=== PATIENT | female | born 1945 | race Caucasian/White ===

== ENCOUNTER 2017-06-20 10:02 | Day surgery (SDC) | payer OTHER, MEDICARE, SELFPAY ==
[2017-06-07 13:32] VITALS: BMI 23.3
[2017-06-20 10:39] VITALS: BP 139/73; PULSE 58; RESP 18; TEMP 36.7; O2SAT 99
[2017-06-20 11:04] LABS: Basophils % 0.5 % (0.1-2.0); Eosinophils # 0.3 K/mm3 (0.0-0.4); Eosinophils % 5.2 % (0.1-12.0); Hematocrit 41.2 % (37.0-47.0); Hemoglobin 13.5 g/dL (12.2-16.2); Lymphocytes # 1.3 K/mm3 (0.7-4.5); Lymphocytes % 25.7 K/mm3 (10-50); Mean Corpuscular HGB Conc 32.8 g/dL (31.8-35.4); Mean Corpuscular Volume 91.5 fl (81-99); Mean Platelet Volume 7.5 fl (7.4-10.4); Monocytes # 0.3 K/mm3 (0.1-1.0); Monocytes % 5.4 % (1.7-9.3); Neutrophils # 3.2 K/mm3 (1.8-7.8); Neutrophils % 63.2 % (37.0-80.0); Platelet Count 240 K/mm3 (142-424)
[2017-06-20 11:12] LABS: Anion Gap 9.2 mEq/L (5-15); Blood Urea Nitrogen 15 mg/dL (7-18); Carbon Dioxide 31 mmol/L (21.0-32.0); Chloride 104 mmol/L (98-107); Creatinine Clearance Estimated 50 mL/min (0-300); Creatinine,Serum 0.63 mg/dL (0.55-1.02); Estimated Glomerular Filt Rate 93 ml/min (>60); GFR (African American) 112 ML/MIN (>60); Glucose 93 mg/dL (74-106); Potassium 4.2 mmoL/L (3.5-5.1); Sodium 140 mmol/L (136-145)
--- NOTE | 2017-06-20 11:18 | P.PN_ITS ---
[facility] Anesthesia Checklist - Patient Identification Patient Identification: Arm Band, Verbal (Name & ) - Structural Data Admitted From: Home Planned Operative Procedure/s: kyphoplasty Consent for Planned Operative Procedure(s) Verified: Yes Verified Documents: Surgical Consent - NPO Status Verified Time NPO: 00:00 - Chart Verification Results Verified: None - Additional verifications Patient : No Anesthesia Reactions: No Hx Blood Transfusions: No Blood Transfusion Reaction: No Cephalosporin Allergy: No Previous Colonoscopy: No - Cardiovascular Assessment Heart Sounds: S1 & S2 Pulse Strength: Strong Pulse Rhythm: Regular Peripheral Edema: No - Airway Assessment C-Spine Mobility Assessed: Yes TMJ Mobility Assessed: Yes Dentition: Good Dentition - Neurological Assessment Level of Consciousness: Awake, Alert, Appropriate Hx Seizures: No Numbness or tingling in extremities: No - Anesthesia Plan Anesthesia Risk discussed: Yes Anesthesia Plan: Verified ASA Class: I Anesthesia Type: MAC [facility] Anesthesia HX I have reviewed the patient's past medical history: Yes Medical History: Reports:: Hyperlipidemia, Migraine, Osteoporosis Denies:: Cancer, Diabetes Mellitus Type 1, Diabetes Mellitus Type 2, MRSA, Seizures Other Medical History: Denies: Blood Transfusion Reaction Comment: tummy tuck Amputation: No Fractures: No *Family Hx:: Cancer, Coronary Artery Disease, Heart Attack, Hyperlipidemia, Hypertension, Thyroid Disorder
[2017-06-20 14:20] VITALS: BP 121/59; PULSE 74; RESP 16; TEMP 36.2; O2SAT 98
[2017-06-20 14:35] VITALS: BP 124/63; PULSE 64; RESP 18; O2SAT 97
[2017-06-20 14:50] VITALS: BP 122/62; PULSE 66; RESP 18; O2SAT 96
[2017-06-20 15:05] VITALS: BP 130/66; PULSE 62; RESP 18; O2SAT 95
[2017-06-20 15:45] VITALS: BP 130/66; PULSE 62; RESP 18; O2SAT 95
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
== END 2017-06-20 15:45 | disposition home or self-care (01) ==
LOC: OR 10:06
PROVIDERS: Family Provider Internal Medicine Adolescent Medicine; PCP Internal Medicine Adolescent Medicine; Visit Provider Anesthesiology
PROC: (CPT 22513; principal; 2017-06-20 11:30)
DX: S22.080A Wedge compression fracture of T11-T12 vertebra, initial encounter for closed fracture (principal); M85.88 Other specified disorders of bone density and structure, other site; V89.2XXA Person injured in unspecified motor-vehicle accident, traffic, initial encounter
CPT/HCPCS: 22513; 80048; 85025; 96374

== ENCOUNTER → 2017-07-02 11:05 | Outpatient (POV) | payer OTHER, MEDICARE, SELFPAY ==
[2017-07-02 11:23] VITALS: BP 146/57; PULSE 63; O2SAT 100; BMI 23.3
--- NOTE | 2017-07-02 11:53 | P.CONS_ITS ---
[facility] Pain Management SOAP Note Subjective:: This patient is a pleasant 72-year-old white female who is status post kyphoplasty of the T12 compression fracture. She is 2 weeks status post this procedure and is doing very well with resolution of her mid back pain. She still has some low back pain however, she still has some degenerative changes with bulging disc and arthritis in her low back. She has more discomfort with overactivity than pain. This does not interfere with her daily activities. Overall she is doing well. Objective:: Alert and oriented ?3 in no acute distress. Some tenderness over lower lumbar spine. Motor strength of the lower extremities is 5/5. There is no gross sensory deficit. Assessment:: Status post T12 compression fracture with kyphoplasty procedure. Degenerative disc disease of lumbar spine with lumbar radiculopathy symptoms. Plan:: We will follow-up with her in 3 months. Overall she is doing well. I did talk to her about lumbar epidural steroid injections and since only has some slight discomfort with activity she would like to hold off on injections at this time.
== END ==
PROVIDERS: Family Provider Internal Medicine Adolescent Medicine; PCP Internal Medicine Adolescent Medicine; Visit Provider Anesthesiology
DX: M54.16 Radiculopathy, lumbar region (principal)
CPT/HCPCS: 99212

== ENCOUNTER → 2017-09-17 09:02 | Outpatient (POV) | payer MEDICARE, SELFPAY ==
[2017-09-17 09:24] VITALS: BP 133/80; PULSE 78; RESP 18; O2SAT 96; BMI 23.4
--- NOTE | 2017-09-17 09:49 | HMH.PAINSOAP ---
[facility] Pain Management SOAP Note Subjective:: Patient is a very pleasant 72-year-old white female who presents today for 3 month follow-up after kyphoplasty of T12 compression fracture. She states she is doing very well at this time she has no back pain. Patient does state she has some pain when she does sewing however it is very manageable. Patient is currently under treatment for osteoporosis. Overall she is doing well ROS General: no recent weight change, no fever, no sleep disturbances Respiratory: no cough, no shortness of air, no recurring pulmonary infections Cardiovascular/Peripheral Vascular: No chest pain, No palpitations, no edema, no shortness of breath. Patient did have one episode and is being worked up by her primary care physician to rule out cardiac pathology. Gastrointestinal: no new onset incontinence, normal bowel movements reported Genitourinary: no new onset incontinence Musculoskeletal: Back pain Psychiatric: normal mood/ affect, Neurological: [denies weakness in extremities], [denies balance issues] Objective:: Physical Exam General: Alert and oriented x3, no acute distress, pleasant and cooperative, [on room air] Lungs: Resps E/U, Symmetrical chest expansion, Eyes: PERRL Musculoskeletal: Flexion and extension of thoracic and lumbar spine somewhat guarded secondary to pain, deep tendon reflexes normal, strength in upper and lower extremities [5/5], normal gait noted Neurological: speech clear, room service clerk equal, no gross sensory deficits Assessment:: Status post T12 compression fracture with kyphoplasty procedure. Degenerative disc disease of the lumbar spine with lumbar radiculopathy Plan:: This patient is doing extremely well we will just follow up with her on an as-needed basis. I discussed with her her options of injections if she has future pain. I also encouraged her to continue her treatment for osteoporosis. This note was dictated using voice recognition software and may contain errors or omissions
--- NOTE | 2017-09-17 09:52 | P.CONS_ITS ---
[facility] Pain Management SOAP Note Subjective:: Patient is a very pleasant 72-year-old white female who presents today for 3 month follow-up after kyphoplasty of T12 compression fracture. She states she is doing very well at this time she has no back pain. Patient does state she has some pain when she does sewing however it is very manageable. Patient is currently under treatment for osteoporosis. Overall she is doing well ROS General: no recent weight change, no fever, no sleep disturbances Respiratory: no cough, no shortness of air, no recurring pulmonary infections Cardiovascular/Peripheral Vascular: No chest pain, No palpitations, no edema, no shortness of breath. Patient did have one episode and is being worked up by her primary care physician to rule out cardiac pathology. Gastrointestinal: no new onset incontinence, normal bowel movements reported Genitourinary: no new onset incontinence Musculoskeletal: Back pain Psychiatric: normal mood/ affect, Neurological: [denies weakness in extremities], [denies balance issues] Objective:: Physical Exam General: Alert and oriented x3, no acute distress, pleasant and cooperative, [ on room air] Lungs: Resps E/U, Symmetrical chest expansion, Eyes: PERRL Musculoskeletal: Flexion and extension of thoracic and lumbar spine somewhat guarded secondary to pain, deep tendon reflexes normal, strength in upper and lower extremities [5/5], normal gait noted Neurological: speech clear, processing inspector equal, no gross sensory deficits Assessment:: Status post T12 compression fracture with kyphoplasty procedure. Degenerative disc disease of the lumbar spine with lumbar radiculopathy Plan:: This patient is doing extremely well we will just follow up with her on an as- needed basis. I discussed with her her options of injections if she has future pain. I also encouraged her to continue her treatment for osteoporosis. This note was dictated using voice recognition software and may contain errors or omissions
== END ==
PROVIDERS: Family Provider Internal Medicine Adolescent Medicine; PCP Internal Medicine Adolescent Medicine; Visit Provider Clinical Nurse Specialist Family Health
DX: M54.16 Radiculopathy, lumbar region (principal)
CPT/HCPCS: 99212

== ENCOUNTER 2017-09-20 15:14 | Observation (INO) ==
--- NOTE | 2017-09-20 16:28 | Consult Report ---
History of Present Illness Consult date: 09/20/17 Requesting physician: John Lopez Consult reason: chest pain Chief complaint: Chest pain Additional Medical History:: 1. No known coronary artery disease. 2. Significant family history of Coronary Heart disease, Hyperlipidemia, Hypertension. a. Father ([place]) unknown age b. Mother (CAD, HTN) 3. Mixed Hyperlipidemia 4. Second-hand tobacco exposure 5. Abnormal ECG History of present illness: 72-year-old white female presented to cardiology clinic today chest pain. Patient stated she started having chest pain 1 week ago accompanied with shortness of breath. Patient had been evaluated by Dr. Lopez 1 week ago. EKG was performed which revealed abnormal EKG with possible inferior ischemia. Patient stated that she has had a few more episodes of the chest pain since seen her family doctor. EKG was performed in the office today which revealed normal sinus rhythm, Septal infarct marked with T wave abnormality and consider inferior ischemia with a heart rate of 69 bpm. Patient has no known coronary artery disease. There is significant family history of coronary artery disease , hyperlipidemia and hypertension. Patient is a non-smoker but exposed to secondhand tobacco use. Due to patient's unstable angina and abnormal EKG, left heart catheterization will possibly be performed tomorrow. Initial chest x-ray and base line labs are pending at time of this exam. [facility] History Medical History: Reports:: Hyperlipidemia, Migraine, Osteoporosis Denies:: Cancer, Diabetes Mellitus Type 1, Diabetes Mellitus Type 2, MRSA, Seizures Other Medical History: Reports: Osteoporosis. Denies: Blood Transfusion Reaction Other Surgeries: Yes: Other (Stomach Sx) Amputation: No Fractures: No - *Social History Smoking Status: Never smoker Alcohol Intake: never Alcohol Intake Frequency:: other Occupational Status: retired Housing: house Household Members: friend(s) *Family Hx:: Cancer, Coronary Artery Disease, Heart Attack, Hyperlipidemia, Hypertension, Thyroid Disorder Meds Home Medications Medication Instructions Recorded Confirmed Type Aspirin [Aspir 81] 81 mg PO DAILY 06/07/17 06/20/17 History Rizatriptan Benzoate [Rizatriptan] 10 mg PO [id number] PRN 06/07/17 06/20/17 History Alendronate Sodium 70 mg PO DAILY 06/20/17 06/20/17 History Allergies Allergy/AdvReac Type Severity Reaction Status Date / Time No Known Drug Allergies Allergy Unknown Verified 06/20/17 10:29 Review of Systems - Review of Systems Review of systems:: pertinent systems reviewed and negative unless documented below - Constitutional Reports fatigue, Reports lack of energy - *Cardiovascular Reports chest pain, Reports chest pain at rest, Reports chest pain with activity , Reports shortness of breath, Reports shortness of breath with activity, Denies leg pain with activity, Denies excessive sweating, Denies generalized swelling - *Respiratory Reports shortness of breath, Reports shortness of breath with activity, Denies cough, Denies wheezing - *Gastrointestinal Denies abdominal pain, Denies heartburn - *Neurologic Reports weakness, Denies dizziness, Denies dizziness Exam - Constitutional no acute distress, average body habitus, cooperative - *Routine Neck Exam Present: supple, full ROM, normal carotid upstroke, trachea midline. Absent: JVD, carotid bruit - *Routine Respiratory Exam Present: CTA bilaterally. Absent: respiratory distress, wheezes, crackles - *Routine Cardiovascular Exam Present: RRR, Normal S1, Normal S2. Absent: murmur, gallop, rubs, JVD - *Routine Abdominal Exam Present: soft. Absent: distended, guarding - *Routine Extremities Exam Present: full ROM, pulses intact, normal capillary refill. Absent: cyanosis, clubbing, edema - *Routine Neurological Exam Present: alert, oriented X3, CN II-XII intact, moving all extremities, normal speech Assessment and Plan (1) Hyperlipemia Current visit: Yes Status: Chronic Category: Medical Code(s): E78.5 - Hyperlipidemia, unspecified (2) Family history of coronary artery disease Current visit: Yes Status: Chronic Category: Medical Code(s): Z82.49 - Family history of ischemic heart disease and other diseases of the circulatory system (3) Angina of effort Current visit: Yes Status: Acute Category: Medical Code(s): I20.8 - Other forms of angina pectoris - Assessment and plan all Dx Assessment and Plan for all problems:: Plan: 1. Continue medical management per PCP. 2. Add Plavix 300mg po now x 1 dose then, Plavix 75mg 1 tablet po daily. 3. Aspirin 81 mg 1 tablet po daily. 4. Start Heparin drip per facility protocol. 5. Lopressor 12.5mg 1 tablet po BID. 6. Obtain Chest xray for chest abnormalities. 7. Obtain echocardiogram for LV function and valve status. 8. Obtain CBC, BMP, serial cardiac enzymes for metabolic imbalances and cardiac muscle damage. 9. Plan for Left Heart catetherization in am. Discussed with pt the risk and benefits of heart catetherization. Pt agreeable. 10. NPO after midnight due to heart catetherization in am.
--- NOTE | 2017-09-20 16:37 | History & Physical Report ---
*Admission Date: 09/20/17 *Chief complaint: Left-sided aching chest discomfort *History of present illness: 72-year-old female with no known history of coronary artery disease was seen in the cardiology clinic today after having multiple episodes over the last 2 weeks of an aching chest discomfort that occurs usually with activity and has certainly been more noticeable when walking up steps. Patient typically will walk 3 miles a day but admits she has been walking significantly less due to the aching chest. When she has the aching chest discomfort she denies shortness of breath, nausea, radiation of disc comfort into the neck or jaw or back or left arm. She takes a baby aspirin a day. There is a family history of coronary artery disease and her mother had "angina". Cardiology service admitted her to the ICU as there were no regular beds available [facility] History I have reviewed the patient's past medical history: Yes Medical History: Reports:: Hyperlipidemia, Migraine, Osteoporosis Denies:: Cancer, Diabetes Mellitus Type 1, Diabetes Mellitus Type 2, MRSA, Seizures Other Medical History: Reports: Osteoporosis. Denies: Blood Transfusion Reaction Other Surgeries: Yes: Other (Stomach Sx) Amputation: No Fractures: No - *Social History Smoking Status: Never smoker Alcohol Intake: never Alcohol Intake Frequency:: other Occupational Status: retired Housing: house Household Members: friend(s) *Family Hx:: Cancer, Coronary Artery Disease, Heart Attack, Hyperlipidemia, Hypertension, Thyroid Disorder Review of Systems - Review of Systems Review of systems:: pertinent systems reviewed and negative unless documented below Meds Home Medications Medication Instructions Recorded Confirmed Type Aspirin [Aspir 81] 81 mg PO DAILY 06/07/17 06/20/17 History Rizatriptan Benzoate [Rizatriptan] 10 mg PO [id number] PRN 06/07/17 06/20/17 History Alendronate Sodium 70 mg PO DAILY 06/20/17 06/20/17 History Allergies Allergy/AdvReac Type Severity Reaction Status Date / Time No Known Drug Allergies Allergy Unknown Verified 06/20/17 10:29 Exam I & O for Last 24 hours: Intake & Output 09/18/17 09/19/17 09/20/17 09/21/17 11:59 11:59 11:59 11:59 Weight 141 lb Narrative: She is awake and alert in no distress. HEENT exam is grossly normal. Neck without lymphadenopathy. Lungs are clear to auscultation. Heart had a regular rate and rhythm without murmurs gallops or rubs. Abdomen is soft, nontender, nondistended. Patient has active range of motion in all extremities with no significant pedal edema. Neurologically there is no deficit Assessment and Plan (1) Angina of effort Current visit: Yes Status: Acute Category: Medical Code(s): I20.8 - Other forms of angina pectoris - Assessment and plan all Dx Assessment and Plan for all problems:: She has been admitted for cardiac catheterization in the a.m.
[2017-09-20 17:26] LABS: INR 1.03 (0.9-1.1); Prothrombin Time 11.1 seconds (9.4-11.8)
[2017-09-20 17:32] LABS: Albumin Level 3.6 gm/dL (3.4-5.0); Anion Gap 10.9 mEq/L (5-15); Bilirubin,Total 0.2 mg/dL (0.2-1.0); Calcium 9.4 mg/dL (8.5-10.1); Globulin 3.5 gm/dl (1.3-3.2); Potassium 3.9 mmoL/L (3.5-5.1); Total Protein,Serum 7.1 gm/dL (6.4-8.2)
[2017-09-21 05:56] LABS: Basophils % 0.3 % (0.1-2.0); Eosinophils # 0.1 K/mm3 (0.0-0.4); Eosinophils % 2.3 % (0.1-12.0); Hematocrit 38.9 % (37.0-47.0); Hemoglobin 12.9 g/dL (12.2-16.2); Lymphocytes # 1.3 K/mm3 (0.7-4.5); Mean Corpuscular HGB Conc 33.1 g/dL (31.8-35.4); Mean Corpuscular Hemoglobin 31.3 pg (27.0-31.2); Mean Corpuscular Volume 94.6 fl (81-99); Monocytes # 0.4 K/mm3 (0.1-1.0); Monocytes % 9.2 % (1.7-9.3); Neutrophils # 2.8 K/mm3 (1.8-7.8); Neutrophils % 61.2 % (37.0-80.0); Platelet Count 204 K/mm3 (142-424); Red Blood Count 4.11 M/mm3 (4.20-5.40); White Blood Count 4.6 K/mm3 (4.8-10.8)
[2017-09-21 06:11] LABS: Albumin Level 2.9 gm/dL (3.4-5.0); Albumin/Globulin Ratio 0.9 (1.1-1.8); Bilirubin,Total 0.2 mg/dL (0.2-1.0); Calcium 8.9 mg/dL (8.5-10.1); Globulin 3.1 gm/dl (1.3-3.2)
--- NOTE | 2017-09-21 07:46 | Pharmacy Consult Notes ---
[facility] Pharmacy VTE Monitoring - Patient Demographics Admission date: 09/20/17 Report Date: 09/21/17 Time: 07:45 Allergies/Adverse Reactions: Patient Allergies No Known Drug Allergies Allergy (Unknown, Verified 06/20/17 10:29) Height: 1.65 m Weight: 63.673 kg Patient Problems: Current Active Problems Angina of effort (Acute) Hyperlipemia (Chronic) Family history of coronary artery disease (Chronic) - VTE Risk Labs: VTE Related Lab Results Hgb 12.9 g/dL (12.2-16.2) 09/21/17 05:30 Hct 38.9 % (37.0-47.0) 09/21/17 05:30 Plt Count 204 K/mm3 (142-424) 09/21/17 05:30 PT 11.1 seconds (9.4-11.8) 09/20/17 17:05 INR 1.03 (0.9-1.1) 09/20/17 17:05 APTT 39.3 seconds (23.6-34.0) H D 09/21/17 02:13 BUN 17 mg/dL (7-18) 09/21/17 05:30 Creatinine 0.72 mg/dL (0.55-1.02) 09/21/17 05:30 Estimated Creat Clear 50 mL/min (0-300) 09/21/17 05:30 Was VTE Risk Assessment Performed: Yes VTE Score: 1 VTE Risk Level: Very Low Risk - Prophylaxis VTE Prophylaxis Ordered?: Yes Types of VTE Prophylaxis: TEDS Knee High, Pharmacological Location of Applied Device: Bilateral Lower Extremeties Pharmacologic Type: Heparin - VTE Diagnosis Confirmed Treatment or plan recommended: Continue Current Treatment
--- NOTE | 2017-09-21 08:01 | Progress Note ---
Internal Medicine - PN: Subj *Date: 09/21/17 *Time: 08:00 Interval history: Patient has had no pain through the night, but has been resting quietly. Exam Vital signs and Labs for Last 24 Hours: Temp Pulse Resp BP Pulse Ox 98.3 F 60 16 97/54 94 L 09/21/17 05:51 09/21/17 05:51 09/21/17 05:51 09/21/17 05:51 09/21/17 05:51 Laboratory Results - last 24 hr 09/20/17 17:05: Sodium 141, Potassium 3.9, Chloride 103, Carbon Dioxide 31, Anion Gap 10.9, BUN 22 H, Creatinine 0.87, Estimated Creat Clear 51, Estimated GFR 64, Est GFR ( Amer) 77, Glucose 129 H, Calcium 9.4, Total Bilirubin 0.2, AST 32, ALT 26, Alkaline Phosphatase 54, Total Protein 7.1, Albumin 3.6, Globulin 3.5 H, Albumin/Globulin Ratio 1.0 L 09/20/17 17:05: Troponin I 0.16 H 09/20/17 17:05: PT 11.1, INR 1.03 09/20/17 17:05: APTT 24.5 09/21/17 02:13: APTT 39.3 H D 09/21/17 05:30: WBC 4.6 L, RBC 4.11 L, Hgb 12.9, Hct 38.9, MCV 94.6, MCH 31.3 H , MCHC 33.1, RDW 13.0, Plt Count 204, MPV 8.0, Neut % (Auto) 61.2, Lymph % (Auto ) 27.0, [place] % (Auto) 9.2, Eos % (Auto) 2.3, Baso % (Auto) 0.3, Neut # (Auto) 2.8, Lymph # (Auto) 1.3, [place] # (Auto) 0.4, Eos # (Auto) 0.1, Baso # (Auto) 0.0 09/21/17 05:30: Sodium 143, Potassium 4.0, Chloride 107, Carbon Dioxide 29, Anion Gap 11.0, BUN 17, Creatinine 0.72, Estimated Creat Clear 50, Estimated GFR 79, Est GFR ( Amer) 96 D, Glucose 103 D, Calcium 8.9, Total Bilirubin 0.2, AST 25, ALT 20, Alkaline Phosphatase 48, Total Protein 6.0 L, Albumin 2.9 L D, Globulin 3.1, Albumin/Globulin Ratio 0.9 L I & O for Last 24 hours: Intake & Output 09/18/17 09/19/17 09/20/17 09/21/17 11:59 11:59 11:59 11:59 Intake Total 706 / 706 Output Total 1500 / 1500 Balance -794 / -794 Weight 140 lb 6 oz Narrative: Patient pleasant, alert, oriented 3, heart rate regular, no edema noted. Assessment and Plan (1) Hyperlipemia Current visit: Yes Status: Chronic Category: Medical Code(s): E78.5 - Hyperlipidemia, unspecified (2) Family history of coronary artery disease Current visit: Yes Status: Chronic Category: Medical Code(s): Z82.49 - Family history of ischemic heart disease and other diseases of the circulatory system (3) Angina of effort Current visit: Yes Status: Acute Category: Medical Code(s): I20.8 - Other forms of angina pectoris - Assessment and plan all Dx Assessment and Plan for all problems:: Agree with plans for left heart cath today.
--- NOTE | 2017-09-21 10:07 | Pharmacy Consult Notes ---
[facility] Pharmacy Heparin Dosing - Demographic Data Admission date:: 09/20/17 Date: 09/21/17 Time: 10:05 Allergies/Adverse Reactions: Allergies Allergy/AdvReac Type Severity Reaction Status Date / Time No Known Drug Allergies Allergy Unknown Verified 06/20/17 10:29 Height: 1.65 m Weight: 63 kg - Indication Medication therapy:: Heparin Patient Problems: Current Active Problems Angina of effort (Acute) Hyperlipemia (Chronic) Family history of coronary artery disease (Chronic) CVA?: No Bleeding problem?: No Kidney disease?: No [place]?: Yes Desired PTT range:: 60-80 seconds - Labs Anticoagulation Lab Results:: 09/21/17 05:30 Hgb 12.9 Hct 38.9 Plt Count 204 - Monitoring Dose Monitor 1 Date: 09/20/17 Time: 17:00 PTT Result:: 24.5 Infusion Rate:: 15 ML/HR (750 UNITS/HR) Comment:: 4000 UNIT BOLUS Dose Monitor 2 Date: 09/21/17 Time: 02:13 PTT Result:: 39.3 Infusion Rate:: 17 ML/HR (850 UNITS/HR) Comment:: REBOLUS 4000 UNITS PTT <<45 Dose Monitor 3 Date: 09/21/17 Time: 08:00 PTT Result:: 129.1 Infusion Rate:: HEPARIN STOPPED IN KITCHEN MANAGER. - Core Measures Is INR > or = 2 at discharge?: No Most Recent Labs:: Laboratory Results - last 24 hr 09/20/17 17:05: Sodium 141, Potassium 3.9, Chloride 103, Carbon Dioxide 31, Anion Gap 10.9, BUN 22 H, Creatinine 0.87, Estimated Creat Clear 51, Estimated GFR 64, Est GFR ( Amer) 77, Glucose 129 H, Calcium 9.4, Total Bilirubin 0.2, AST 32, ALT 26, Alkaline Phosphatase 54, Total Protein 7.1, Albumin 3.6, Globulin 3.5 H, Albumin/Globulin Ratio 1.0 L 09/20/17 17:05: Troponin I 0.16 H 09/20/17 17:05: PT 11.1, INR 1.03 09/20/17 17:05: APTT 24.5 09/21/17 02:13: APTT 39.3 H D 09/21/17 05:30: WBC 4.6 L, RBC 4.11 L, Hgb 12.9, Hct 38.9, MCV 94.6, MCH 31.3 H , MCHC 33.1, RDW 13.0, Plt Count 204, MPV 8.0, Neut % (Auto) 61.2, Lymph % (Auto ) 27.0, [place] % (Auto) 9.2, Eos % (Auto) 2.3, Baso % (Auto) 0.3, Neut # (Auto) 2.8, Lymph # (Auto) 1.3, [place] # (Auto) 0.4, Eos # (Auto) 0.1, Baso # (Auto) 0.0 09/21/17 05:30: Sodium 143, Potassium 4.0, Chloride 107, Carbon Dioxide 29, Anion Gap 11.0, BUN 17, Creatinine 0.72, Estimated Creat Clear 50, Estimated GFR 79, Est GFR ( Amer) 96 D, Glucose 103 D, Calcium 8.9, Total Bilirubin 0.2, AST 25, ALT 20, Alkaline Phosphatase 48, Total Protein 6.0 L, Albumin 2.9 L D, Globulin 3.1, Albumin/Globulin Ratio 0.9 L 09/21/17 08:00: APTT 129.1 H* D If INR was < than 2.0 why was therapy stopped?: NOT DVT Were Heparin and Warfarin started on the same day?: No If not, why?: NO DVT
--- NOTE | 2017-09-21 14:15 | Discharge Summary ---
General - General Admission date: 09/20/17 Discharge date: 09/21/17 HPI HPI: 72-year-old female with no known history of coronary artery disease was seen in the cardiology clinic today after having multiple episodes over the last 2 weeks of an aching chest discomfort that occurs usually with activity and has certainly been more noticeable when walking up steps. Patient typically will walk 3 miles a day but admits she has been walking significantly less due to the aching chest. When she has the aching chest discomfort she denies shortness of breath, nausea, radiation of disc comfort into the neck or jaw or back or left arm. She takes a baby aspirin a day. There is a family history of coronary artery disease and her mother had "angina". Cardiology service admitted her to the ICU as there were no regular beds available Hospital Course Hospital Course: Patient was admitted, ruled out for myocardial infarction, EKG abnormalities noted, cardiology admitted and took to left heart cath this morning. Surprisingly, patient had no blockages and essentially normal cardiac function. She was doing well after the catheterization. We will discharge her home on medications as noted below, close follow-up in 1 week to try to assess where her pain is coming from. Objective Vital signs: Temp Pulse Resp BP Pulse Ox 98.2 F 62 16 92/47 97 09/21/17 08:00 09/21/17 13:25 09/21/17 13:25 09/21/17 13:25 09/21/17 13:25 - *Routine HEENT Exam Head: Present: normocephalic - *Routine Neck Exam Present: supple. Absent: JVD - *Routine Respiratory Exam Present: CTA bilaterally - *Routine Cardiovascular Exam Present: RRR, Normal S1, Normal S2 - *Routine Abdominal Exam Present: soft, normoactive bowel sounds Results Labs on day of discharge: Labs from last 24 hours 09/21/17 09/21/17 09/21/17 08:00 05:30 05:30 WBC 4.6 L RBC 4.11 L Hgb 12.9 Hct 38.9 MCV 94.6 MCH 31.3 H MCHC 33.1 RDW 13.0 Plt Count 204 MPV 8.0 Neut % (Auto) 61.2 Lymph % (Auto) 27.0 Emery % (Auto) 9.2 Eos % (Auto) 2.3 Baso % (Auto) 0.3 Neut # (Auto) 2.8 Lymph # (Auto) 1.3 Emery # (Auto) 0.4 Eos # (Auto) 0.1 Baso # (Auto) 0.0 PT INR APTT 129.1 H* D Sodium 143 Potassium 4.0 Chloride 107 Carbon Dioxide 29 Anion Gap 11.0 BUN 17 Creatinine 0.72 Estimated Creat Clear 50 Estimated GFR 79 Est GFR ( Amer) 96 D Glucose 103 D Calcium 8.9 Total Bilirubin 0.2 AST 25 ALT 20 Alkaline Phosphatase 48 Troponin I Total Protein 6.0 L Albumin 2.9 L D Globulin 3.1 Albumin/Globulin Ratio 0.9 L 09/21/17 09/20/17 09/20/17 02:13 17:05 17:05 WBC RBC Hgb Hct MCV MCH MCHC RDW Plt Count MPV Neut % (Auto) Lymph % (Auto) Emery % (Auto) Eos % (Auto) Baso % (Auto) Neut # (Auto) Lymph # (Auto) Emery # (Auto) Eos # (Auto) Baso # (Auto) PT 11.1 INR 1.03 APTT 39.3 H D 24.5 Sodium Potassium Chloride Carbon Dioxide Anion Gap BUN Creatinine Estimated Creat Clear Estimated GFR Est GFR ( Amer) Glucose Calcium Total Bilirubin AST ALT Alkaline Phosphatase Troponin I Total Protein Albumin Globulin Albumin/Globulin Ratio 09/20/17 09/20/17 17:05 17:05 WBC RBC Hgb Hct MCV MCH MCHC RDW Plt Count MPV Neut % (Auto) Lymph % (Auto) Emery % (Auto) Eos % (Auto) Baso % (Auto) Neut # (Auto) Lymph # (Auto) Emery # (Auto) Eos # (Auto) Baso # (Auto) PT INR APTT Sodium 141 Potassium 3.9 Chloride 103 Carbon Dioxide 31 Anion Gap 10.9 BUN 22 H Creatinine 0.87 Estimated Creat Clear 51 Estimated GFR 64 Est GFR ( Amer) 77 Glucose 129 H Calcium 9.4 Total Bilirubin 0.2 AST 32 ALT 26 Alkaline Phosphatase 54 Troponin I 0.16 H Total Protein 7.1 Albumin 3.6 Globulin 3.5 H Albumin/Globulin Ratio 1.0 L DS: Diagnosis - Discharge Diagnosis (1) Hyperlipemia Status: Chronic (2) Family history of coronary artery disease Status: Chronic (3) Angina of effort Status: Acute Discharge Plan - Patient Discharge Instructions ACTIVITY: Continue current activity DIET: continue same diet - Follow up Plan Follow up with: John Lopez MD [Primary Care Provider] - 1 week Disposition: Home, Self-Senior Care Medications: Home Medications Medication Instructions Recorded Confirmed Type Aspirin [Aspir 81] 81 mg PO DAILY 06/07/17 09/20/17 History Rizatriptan Benzoate [Rizatriptan] 10 mg PO [id number] PRN 06/07/17 09/20/17 History Alendronate Sodium 70 mg PO WEEKLY 06/20/17 09/20/17 History Nitroglycerin [Nitrostat 0.4mg SL 0.4 mg SL Q5MINP PRN 09/21/17 09/21/17 History Tablet] Prescriptions/Medication Reconciliation: New Omeprazole [Omeprazole 20mg Capsule] 20 mg PO DAILY 30 Days #30 cap Continue Rizatriptan Benzoate [Rizatriptan] 10 mg PO [id number] PRN PRN Reason: migraines Nitroglycerin [Nitrostat 0.4mg SL Tablet] 0.4 mg SL Q5MINP PRN PRN Reason: Chest Pain Aspirin [Aspir 81] 81 mg PO DAILY Alendronate Sodium 70 mg PO WEEKLY
[2017-09-21 17:49] VITALS: BP 95/50
--- NOTE | 2017-09-24 21:01 | Cardiology Report ---
PROCEDURE: 2-D M-mode and color Doppler study INDICATIONS FOR THE TEST: Chest pain X COPD Heart Murmur Tobacco Smoking Palpitations Fatigue Syncope Edema Hypertension Diabetes Mellitus Rheumatic Fever SOB YOUNG Obesity HyperlipidemiaX Family History HDX Additional History ABN EKG PATIENT INFORMATION HEIGHT: 65 WEIGHT:140 GENDER: Female B/P:97/54 2-D/M-MODE INTERPRETATION: 2-D MEASUREMENTS OBSERVED VALUES IN CMS Right Ventricular Dimension (RVDd) 2.0 Interventricular Septum (Thickness)(IVsd) 1.0 Left Ventricular Internal Dimensions(LVIDd) 4.4 Left Ventricular Posterior Wall (Thickness)(LVPWd) 1.0 Aortic Root 3.9 Aortic Cusp Separation 2.2 Left Atrial Dimensions (LAD) 2.5 2D 1. Left atrium is qualitatively mildly enlarged, left ventricle is normal size, visually estimated ejection fraction of 50% with no obvious regional wall motion abnormality, endocardial surfaces are somewhat poorly visualized. 2. The right atrium is mildly enlarged, right ventricle is normal size and contractility. 3. The aortic valve is minimally thickened and fibrosed. 4. The mitral and tricuspid valve leaflets are minimally thickened. 5. The pulmonic valve is poorly visualized. 6. No significant pericardial effusion noted. DOPPLER INTERROGATION: Doppler interrogation of the aortic, mitral and tricuspid valvular presence of mild mitral and tricuspid regurgitation, calculated right ventricular systolic pressure 38 mmHg consistent with mild pulmonary hypertension, grade 1 diastolic dysfunction seen with tissue Doppler evidence of raised left atrial pressure. CONCLUSION: 1. Mild biatrial enlargement, normal left ventricular size, visually estimated ejection fraction 50% with no obvious regional wall motion abnormality, grade 1 diastolic dysfunction seen with tissue Doppler evidence of raised left atrial pressure. 2. Mild mitral and tricuspid regurgitation, calculated right ventricular systolic pressure is 38 mmHg consistent with mild pulmonary hypertension. 3. No significant pericardial effusion noted.
== END 2017-09-21 15:15 | disposition home or self-care (01) ==
LOC: 2ND
PROVIDERS: ADMIT Internal Medicine Adolescent Medicine; ATTEND Internal Medicine Adolescent Medicine

== ENCOUNTER → 2018-04-19 11:07 | Outpatient (CLI) | payer MEDICARE, SELFPAY ==
[2018-04-19 12:26] LABS: Basophils % 0.5 % (0.1-2.0); Hematocrit 41.8 % (37.0-47.0); Hemoglobin 13.6 g/dL (12.2-16.2); Lymphocytes # 1.3 K/mm3 (0.7-4.5); Lymphocytes % 30.9 % (10-50); Mean Corpuscular HGB Conc 32.6 g/dL (31.8-35.4); Mean Corpuscular Hemoglobin 31.3 pg (27.0-31.2); Mean Corpuscular Volume 96.1 fl (81-99); Mean Platelet Volume 7.2 fl (7.4-10.4); Monocytes # 0.4 K/mm3 (0.1-1.0); Monocytes % 8.5 % (1.7-9.3); Neutrophils # 2.5 K/mm3 (1.8-7.8); Neutrophils % 59.1 % (37.0-80.0); Platelet Count 229 K/mm3 (142-424); Red Blood Count 4.35 M/mm3 (4.20-5.40); Red Cell Distribution Width 12.8 % (11.5-17.5); White Blood Count 4.3 K/mm3 (4.8-10.8)
[2018-04-19 12:54] LABS: Alanine Aminotransferase 26 U/L (12-78); Albumin Level 3.6 gm/dL (3.4-5.0); Albumin/Globulin Ratio 1.2 (1.1-1.8); Alkaline Phosphatase 51 U/L (46-116); Anion Gap 10.6 mEq/L (5-15); Aspartate Amino Transferase 21 U/L (15-37); Bilirubin,Total 0.3 mg/dL (0.2-1.0); Blood Urea Nitrogen 21 mg/dL (7-18); Calcium 9.4 mg/dL (8.5-10.1); Carbon Dioxide 32 mmol/L (21.0-32.0); Chloride 101 mmol/L (98-107); Chol/HDL Ratio 2.2 (1-3.5); Cholesterol 214 mg/dL (140-200); Creatinine,Serum 0.69 mg/dL (0.55-1.02); Estimated Glomerular Filt Rate 83 ml/min (>60); GFR (African American) 101 ML/MIN (>60); Globulin 3.1 gm/dl (1.3-3.2); Glucose 86 mg/dL (74-106); HDL Cholesterol 97 mg/dL (29-89); LDL Cholesterol 106 mg/dL (0-130); Potassium 4.6 mmoL/L (3.5-5.1); Sodium 139 mmol/L (136-145); Total Protein,Serum 6.7 gm/dL (6.4-8.2); Triglycerides 55 mg/dL (30-200); VLDL Cholesterol 11 mg/dL (0-40)
[2018-04-22 11:16] LABS: Vitamin D 25 Hydroxy 49.6 ng/mL (30.0-100.0)
== END ==
PROVIDERS: PCP Internal Medicine Adolescent Medicine; Visit Provider Internal Medicine Adolescent Medicine
DX: E78.5 Hyperlipidemia, unspecified (principal); M81.0 Age-related osteoporosis without current pathological fracture
CPT/HCPCS: 36415; 80053; 80061; 82652; 85025

== ENCOUNTER → 2018-04-23 16:10 | Outpatient (CLI) | payer MEDICARE, SELFPAY ==
--- NOTE | 2018-04-23 16:12 | MM_ITS ---
MM Dig screening mamm BI w/CAD CAD Screening COMPARISON: Digital mammograms with CAD 12/24/2015 and 01/02/2017 INDICATION: Is a history of breast cancer patient's mother and maternal aunt both diagnosed after menopause. TECHNIQUE: Standard CC and MLO images were obtained. R2 CAD reviewed. FINDINGS: Mild diffuse fibroglandular densities are seen throughout both breasts. Again noted is asymmetric density upper outer quadrant left breast. This is been seen on multiple previous studies but appears slightly more dense and slightly larger on today's study than previous studies. It likely is asymmetric glandular tissue but recommend patient return for ultrasound left breast for additional evaluation. There are few benign-appearing calcination is in each breast. There are no suspicious microcalcifications. There is minimal arterial calcification in each breast. IMPRESSION: Fibrofatty parenchyma with possible change in asymmetric density left breast BI-RADS Category: 0 Need Additional Imaging Evaluation RECOMMENDED FOLLOW-UP: IMM - IMMEDIATE FOLLOW-UP RECOMMENDED (A letter has been sent to the patient regarding results of the study.)
== END ==
PROVIDERS: PCP Internal Medicine Adolescent Medicine; Visit Provider Internal Medicine Adolescent Medicine
DX: Z12.31 Encounter for screening mammogram for malignant neoplasm of breast (principal)
CPT/HCPCS: 77067

== ENCOUNTER → 2018-05-10 13:53 | Outpatient (CLI) | payer MEDICARE, SELFPAY ==
--- NOTE | 2018-05-10 13:56 | US_ITS ---
US breast LT complete INDICATION: Follow-up abnormal mammogram ORDERING PHYSICIAN: John Lopez MD PATIENT AGE: 73 years COMPARISON: 04/23/2018 TECHNIQUE: Left breast ultrasound with axilla FINDINGS: 5 mm cyst at 6:00 Abnormality noted on the mammogram has no sonographic correlate and felt to be related to fibroglandular tissue. IMPRESSION: No evidence of malignancy. Probably benign findings on the mammogram. Recommend 6 month mammographic follow-up BI-RADS Category: 3 Probably Benign Finding Short Term Follow-up RECOMMENDED FOLLOW-UP: 6M - 6 MONTH FOLLOW-UP (A letter has been sent to the patient regarding results of the study.)
== END ==
PROVIDERS: PCP Internal Medicine Adolescent Medicine; Visit Provider Internal Medicine Adolescent Medicine
DX: R92.8 Other abnormal and inconclusive findings on diagnostic imaging of breast (principal)
CPT/HCPCS: 76641

== ENCOUNTER → 2018-10-04 11:09 | Outpatient (CLI) | payer MEDICARE, SELFPAY ==
[2018-10-04 11:53] LABS: Basophils % 0.7 % (0.1-2.0); Eosinophils % 0.5 % (0.1-12.0); Hematocrit 41.9 % (37.0-47.0); Hemoglobin 14.2 g/dL (12.2-16.2); Lymphocytes # 1.2 K/mm3 (0.7-4.5); Lymphocytes % 26.8 % (10-50); Mean Corpuscular HGB Conc 33.9 g/dL (31.8-35.4); Mean Corpuscular Hemoglobin 31.7 pg (27.0-31.2); Mean Corpuscular Volume 93.4 fl (81-99); Mean Platelet Volume 7.2 fl (7.4-10.4); Monocytes # 0.3 K/mm3 (0.1-1.0); Neutrophils # 3.1 K/mm3 (1.8-7.8); Platelet Count 317 K/mm3 (142-424); Red Blood Count 4.48 M/mm3 (4.20-5.40); Red Cell Distribution Width 12.2 % (11.5-17.5); White Blood Count 4.6 K/mm3 (4.8-10.8)
[2018-10-04 13:15] LABS: Alanine Aminotransferase 33 U/L (12-78); Albumin Level 4.2 gm/dL (3.4-5.0); Albumin/Globulin Ratio 1.2 (1.1-1.8); Alkaline Phosphatase 46 U/L (46-116); Anion Gap 11.3 mEq/L (5-15); Aspartate Amino Transferase 26 U/L (15-37); Bilirubin,Total 0.3 mg/dL (0.2-1.0); Blood Urea Nitrogen 14 mg/dL (7-18); Calcium 9.7 mg/dL (8.5-10.1); Carbon Dioxide 29 mmol/L (21.0-32.0); Chloride 103 mmol/L (98-107); Chol/HDL Ratio 2.9 (1-3.5); Cholesterol 249 mg/dL (140-200); Creatinine,Serum 0.73 mg/dL (0.55-1.02); Estimated Glomerular Filt Rate 78 ml/min (>60); GFR (African American) 94 ML/MIN (>60); Globulin 3.6 gm/dl (1.3-3.2); Glucose 90 mg/dL (74-106); HDL Cholesterol 87 mg/dL (29-89); LDL Cholesterol 152 mg/dL (0-130); Potassium 4.3 mmoL/L (3.5-5.1); Sodium 139 mmol/L (136-145); Thyroid Stimulating Hormone 3.08 uIU/ml (0.358-3.740); Total Protein,Serum 7.8 gm/dL (6.4-8.2); Triglycerides 52 mg/dL (30-200); VLDL Cholesterol 10 mg/dL (0-40)
[2018-10-05 20:45] LABS: Vitamin D 25 Hydroxy 47.1 ng/mL (30.0-100.0)
== END ==
PROVIDERS: Visit Provider Internal Medicine Adolescent Medicine
DX: E78.5 Hyperlipidemia, unspecified (principal); M81.0 Age-related osteoporosis without current pathological fracture
CPT/HCPCS: 36415; 80053; 80061; 82652; 84443; 85025

== ENCOUNTER → 2018-10-24 13:33 | Outpatient (CLI) | payer MEDICARE, SELFPAY ==
--- NOTE | 2018-10-24 | US_ITS ---
MM Dig mamm DX unilat LT CAD, US breast LT complete INDICATION: Month follow-up left breast, asymmetric density ORDERING PHYSICIAN: John Lopez MD PATIENT AGE: 73 years COMPARISON: 04/23/2018, 01/02/2017 TECHNIQUE: Standard images performed along with problem-solving views of the left breast. Left breast ultrasound with axilla FINDINGS: Average fibroglandular tissue. There remains an area of asymmetric density in the upper outer aspect of the left breast posterior third similar to the previous exam. This partially effaces on the spot compression an rolled views.. There is a 4 mm a nodule in the retroareolar region. No malignant appearing mass or malignant appearing microcalcification is evident. Left breast ultrasound: At 6:00 near the nipple there is a 4 mm cyst and may correspond to the mammographic abnormality. No other significant anomalies are evident. Specifically, the asymmetric area of increased density in the upper outer aspect of left breast does not show any sonographic correlate. IMPRESSION: Benign findings, no evidence of malignancy. Recommend resume screening mammogram April 2019 BI-RADS Category: 2 Benign Finding(s) RECOMMENDED FOLLOW-UP: 6M - 6 MONTH FOLLOW-UP (A letter has been sent to the patient regarding results of the study.)
--- NOTE | 2018-10-24 13:37 | XR_ITS ---
XR DEXA axial skeleton HISTORY: ITS.REASON: OSTEOPENIA ORDERING PHYSICIAN: John Lopez MD PATIENT AGE: 73 years COMPARISON: 01/02/2017 FINDINGS: The BMD measured at the Left femoral neck is 0.750 g/cm squared with a T score of -2.1. This is considered Osteopenic according to the World Health Organization criteria. Fracture risk is Moderate. Treatment is advised. The L1 L4 density in the T score -1.3 and has increased by 2.7%. The hip density has decreased by 1.5% IMPRESSION: Osteopenia with moderate fracture risk. Treatment is advised. Suggest follow-up exam October 2020
== END ==
PROVIDERS: PCP Internal Medicine Adolescent Medicine; Visit Provider Internal Medicine Adolescent Medicine
DX: R92.8 Other abnormal and inconclusive findings on diagnostic imaging of breast (principal); M81.0 Age-related osteoporosis without current pathological fracture
CPT/HCPCS: 76641; 77065; 77080

== ENCOUNTER → 2019-05-14 10:01 | Outpatient (CLI) | payer MEDICARE, SELFPAY ==
--- NOTE | 2019-05-14 10:17 | MM_ITS ---
PROCEDURE: MM DIG SCREENING MAMM BI W/CAD Patient Age:74Y CLINICAL INDICATION: SCREENING: No hormones. No new complaints. 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 R2 CAD reviewed. Additional nipple profile left MLO view FINDINGS: . Stable mild asymmetry with overall low-density breast and moderate diffuse fatty replacement but no new areas of concern. No suspicious calcifications but a few benign calcifications bilateral can be followed Left breast no significant new findings the The the the the island of tissue upper outer quadrant left breast is again noted similar to multiple previous studies. Including film screen studies dating back to April 2009 on which this area appears stable on CC view. No significant change. . Right breast no significant change The follow-up 1 year bilateral IMPRESSION: Stable bilateral mammogram. Bilateral follow-up 1 year recommended stable area of asymmetric density at deep upper-outer quadrant left breast again noted. Longstanding. Otherwise low-density breast with diffuse fatty change BI-RAD Category: 2 Benign Finding(s) FOLLOW-UP: 1YR 1 Year Follow-up (A letter has been sent to the patient regarding results of the study.) Dictated by: Aries Deleon MD 05/15/2019 10:37 Electronically signed by Aries Deleon MD in [place] 05/15/2019 10:37
[2019-05-14 10:41] LABS: Basophils % 0.4 % (0.1-2.0); Eosinophils # 0.1 K/mm3 (0.0-0.4); Eosinophils % 1.8 % (0.1-12.0); Hematocrit 43.6 % (37.0-47.0); Lymphocytes # 1.1 K/mm3 (0.7-4.5); Lymphocytes % 22.7 % (10-50); Mean Corpuscular HGB Conc 32.1 g/dL (31.8-35.4); Mean Corpuscular Hemoglobin 31.1 pg (27.0-31.2); Mean Corpuscular Volume 96.9 fl (81-99); Mean Platelet Volume 8.2 fl (7.4-10.4); Monocytes # 0.3 K/mm3 (0.1-1.0); Monocytes % 6.3 % (1.7-9.3); Neutrophils # 3.4 K/mm3 (1.8-7.8); Neutrophils % 68.9 % (37.0-80.0); Platelet Count 283 K/mm3 (142-424); Red Cell Distribution Width 12.3 % (11.5-17.5); White Blood Count 4.9 K/mm3 (4.8-10.8)
[2019-05-14 12:27] LABS: Alanine Aminotransferase 24 U/L (12-78); Albumin Level 3.8 gm/dL (3.4-5.0); Albumin/Globulin Ratio 1.2 (1.1-1.8); Alkaline Phosphatase 66 U/L (46-116); Anion Gap 10.7 mEq/L (5-15); Aspartate Amino Transferase 19 U/L (15-37); Bilirubin,Total 0.2 mg/dL (0.2-1.0); Blood Urea Nitrogen 14 mg/dL (7-18); Calcium 9.1 mg/dL (8.5-10.1); Carbon Dioxide 31 mmol/L (21.0-32.0); Chloride 104 mmol/L (98-107); Chol/HDL Ratio 2.5 (1-3.5); Cholesterol 246 mg/dL (140-200); Creatinine,Serum 0.75 mg/dL (0.55-1.02); Estimated Glomerular Filt Rate 75 ml/min (>60); GFR (African American) 91 ML/MIN (>60); Globulin 3.2 gm/dl (1.3-3.2); Glucose 91 mg/dL (74-106); HDL Cholesterol 98 mg/dL (29-89); LDL Cholesterol 141 mg/dL (0-130); Potassium 4.7 mmoL/L (3.5-5.1); Sodium 141 mmol/L (136-145); Triglycerides 34 mg/dL (30-200); VLDL Cholesterol 7 mg/dL (0-40)
== END ==
PROVIDERS: PCP Internal Medicine Adolescent Medicine; Visit Provider Internal Medicine Adolescent Medicine
DX: Z12.31 Encounter for screening mammogram for malignant neoplasm of breast (principal); M81.0 Age-related osteoporosis without current pathological fracture; E78.5 Hyperlipidemia, unspecified
CPT/HCPCS: 36415; 77067; 80053; 80061; 82652; 85025

== ENCOUNTER → 2019-07-25 08:31 | Outpatient (CLI) | payer MEDICARE, SELFPAY ==
[2019-07-25 09:36] LABS: Basophils % 0.5 % (0.1-2.0); Eosinophils # 0.1 K/mm3 (0.0-0.4); Eosinophils % 2.8 % (0.1-12.0); Hematocrit 39.7 % (37.0-47.0); Lymphocytes # 1.1 K/mm3 (0.7-4.5); Lymphocytes % 24.3 % (10-50); Mean Corpuscular HGB Conc 32.8 g/dL (31.8-35.4); Mean Corpuscular Hemoglobin 31.7 pg (27.0-31.2); Mean Corpuscular Volume 96.7 fl (81-99); Monocytes # 0.3 K/mm3 (0.1-1.0); Monocytes % 7.6 % (1.7-9.3); Neutrophils # 2.9 K/mm3 (1.8-7.8); Neutrophils % 64.9 % (37.0-80.0); Platelet Count 238 K/mm3 (142-424); Red Cell Distribution Width 12.4 % (11.5-17.5); White Blood Count 4.5 K/mm3 (4.8-10.8)
[2019-07-25 11:20] LABS: Alanine Aminotransferase 15 U/L (12-78); Albumin Level 4.3 g/dl (3.5-5.0); Albumin/Globulin Ratio 1.7 (1.1-1.8); Alkaline Phosphatase 48 U/L (38-126); Anion Gap 8.7 mEq/L (5-15); Aspartate Amino Transferase 33 U/L (14-36); Bilirubin,Total 0.2 mg/dl (0.2-1.3); Blood Urea Nitrogen 19 mg/dl (7-17); Calcium 10.2 mg/dl (8.4-10.2); Carbon Dioxide 32 mmol/L (22.0-30.0); Chloride 99 mmol/L (98-107); Chol/HDL Ratio 1.7 (1-3.5); Cholesterol 149 mg/dl (140-200); Estimated Glomerular Filt Rate 61 ml/min (>60); GFR (African American) 74 ML/MIN (>60); Globulin 2.6 g/dL (1.3-3.2); Glucose 85 mg/dl (74-100); HDL Cholesterol 87 mg/dl (40-60); Potassium 4.7 mmoL/L (3.5-5.1); Sodium 135 mmol/L (136-145); Total Protein,Serum 6.9 g/dl (6.3-8.2); Triglycerides 48 mg/dl (30-150); VLDL Cholesterol 10 mg/dL (0-40)
[2019-07-25 11:31] LABS: Direct LDL Cholesterol 53.26 mg/dL (100-129)
== END ==
PROVIDERS: Visit Provider Internal Medicine Adolescent Medicine
DX: E78.5 Hyperlipidemia, unspecified (principal); M81.0 Age-related osteoporosis without current pathological fracture
CPT/HCPCS: 36415; 80053; 80061; 82652; 85025

== ENCOUNTER → 2020-01-09 09:58 | Outpatient (CLI) | payer MEDICARE, SELFPAY ==
[2020-01-09 10:36] LABS: Basophils % 0.7 % (0.1-2.0); Eosinophils # 0.1 K/mm3 (0.0-0.4); Hematocrit 39.5 % (37.0-47.0); Hemoglobin 13.6 g/dL (12.2-16.2); Lymphocytes # 1.1 K/mm3 (0.7-4.5); Lymphocytes % 24.8 % (10-50); Mean Corpuscular HGB Conc 34.4 g/dL (31.8-35.4); Mean Corpuscular Hemoglobin 33.1 pg (27.0-31.2); Mean Corpuscular Volume 96.2 fl (81-99); Mean Platelet Volume 7.9 fl (7.4-10.4); Monocytes # 0.3 K/mm3 (0.1-1.0); Neutrophils % 64.5 % (37.0-80.0); Platelet Count 244 K/mm3 (142-424); Red Cell Distribution Width 12.8 % (11.5-17.5); White Blood Count 4.6 K/mm3 (4.8-10.8)
[2020-01-09 11:43] LABS: Chloride 102 mmol/L (98-107); Potassium 4.7 mmoL/L (3.5-5.1); Sodium 140 mmol/L (136-145)
[2020-01-09 11:45] LABS: Blood Urea Nitrogen 18 mg/dl (7-17); Estimated Glomerular Filt Rate 61 ml/min (>60); GFR (African American) 74 ML/MIN (>60)
[2020-01-09 11:46] LABS: Alanine Aminotransferase 23 U/L (12-78); Albumin Level 4.4 g/dl (3.5-5.0); Albumin/Globulin Ratio 1.8 (1.1-1.8); Alkaline Phosphatase 66 U/L (38-126); Anion Gap 10.7 mEq/L (5-15); Aspartate Amino Transferase 39 U/L (14-36); Bilirubin,Total 0.4 mg/dl (0.2-1.3); Calcium 9.9 mg/dl (8.4-10.2); Carbon Dioxide 32 mmol/L (22.0-30.0); Chol/HDL Ratio 1.4 (1-3.5); Cholesterol 134 mg/dl (140-200); Globulin 2.5 g/dL (1.3-3.2); Glucose 87 mg/dl (74-100); HDL Cholesterol 99 mg/dl (40-60); Total Protein,Serum 6.9 g/dl (6.3-8.2); Triglycerides 35 mg/dl (30-150); VLDL Cholesterol 7 mg/dL (0-40)
[2020-01-09 11:57] LABS: Direct LDL Cholesterol 34.03 mg/dL (100-129)
[2020-01-09 14:25] LABS: 25-OH Vitamin D, Total 53.9 ng/mL (30-100)
== END ==
PROVIDERS: Visit Provider Internal Medicine Adolescent Medicine
DX: E78.5 Hyperlipidemia, unspecified (principal); M81.0 Age-related osteoporosis without current pathological fracture
CPT/HCPCS: 36415; 80053; 80061; 82306; 85025

== ENCOUNTER → 2020-01-30 13:21 | Outpatient (CLI) | payer MEDICARE, SELFPAY ==
[2020-02-01 17:05] LABS: Covid-19 Nasal PCR Sendout UK Not Detected
== END ==
PROVIDERS: Visit Provider Internal Medicine Adolescent Medicine
DX: Z03.818 Encounter for observation for suspected exposure to other biological agents ruled out (principal)
CPT/HCPCS: U0003

== ENCOUNTER → 2020-05-05 11:27 | Outpatient (CLI) | payer MEDICARE, SELFPAY ==
[2020-05-05 12:09] LABS: Basophils % 0.6 % (0.1-2.0); Eosinophils # 0.1 K/mm3 (0.0-0.4); Eosinophils % 1.3 % (0.1-12.0); Hematocrit 42.6 % (37.0-47.0); Hemoglobin 14.3 g/dL (12.2-16.2); Lymphocytes # 1.1 K/mm3 (0.7-4.5); Lymphocytes % 25.4 % (10-50); Mean Corpuscular HGB Conc 33.4 g/dL (31.8-35.4); Mean Corpuscular Hemoglobin 31.4 pg (27.0-31.2); Mean Corpuscular Volume 93.9 fl (81-99); Mean Platelet Volume 8.1 fl (7.4-10.4); Monocytes # 0.3 K/mm3 (0.1-1.0); Monocytes % 6.1 % (1.7-9.3); Neutrophils % 66.6 % (37.0-80.0); Platelet Count 246 K/mm3 (142-424); Red Blood Count 4.54 M/mm3 (4.20-5.40); Red Cell Distribution Width 12.6 % (11.5-17.5); White Blood Count 4.5 K/mm3 (4.8-10.8)
[2020-05-05 13:16] LABS: Chloride 101 mmol/L (98-107); Potassium 4.9 mmoL/L (3.5-5.1); Sodium 137 mmol/L (136-145)
[2020-05-05 13:18] LABS: Alanine Aminotransferase 30 U/L (12-78); Aspartate Amino Transferase 45 U/L (14-36); Blood Urea Nitrogen 17 mg/dl (7-17); Estimated Glomerular Filt Rate 70 ml/min (>60); GFR (African American) 84 ML/MIN (>60)
[2020-05-05 13:19] LABS: Albumin Level 4.4 g/dl (3.5-5.0); Albumin/Globulin Ratio 1.7 (1.1-1.8); Alkaline Phosphatase 84 U/L (38-126); Anion Gap 8.9 mEq/L (5-15); Bilirubin,Total 0.6 mg/dl (0.2-1.3); Calcium 10.1 mg/dl (8.4-10.2); Carbon Dioxide 32 mmol/L (22.0-30.0); Chol/HDL Ratio 1.9 (1-3.5); Cholesterol 155 mg/dl (140-200); Globulin 2.6 g/dL (1.3-3.2); Glucose 92 mg/dl (74-100); HDL Cholesterol 81 mg/dl (40-60); Triglycerides 94 mg/dl (30-150); VLDL Cholesterol 19 mg/dL (0-40)
[2020-05-05 13:30] LABS: Direct LDL Cholesterol 48.24 mg/dL (100-129)
[2020-05-05 16:36] LABS: 25-OH Vitamin D, Total 54.3 ng/mL (30-100)
== END ==
PROVIDERS: Visit Provider Internal Medicine Adolescent Medicine
DX: E78.5 Hyperlipidemia, unspecified (principal); M81.0 Age-related osteoporosis without current pathological fracture
CPT/HCPCS: 36415; 80053; 80061; 82306; 85025

== ENCOUNTER → 2020-05-11 15:53 | Outpatient (CLI) | payer MEDICARE, SELFPAY ==
--- NOTE | 2020-05-11 15:57 | MM_ITS ---
PROCEDURE: MM DIG SCREENING MAMM BI W/CAD Referring Doctor: John Lopez Patient Age:75Y CLINICAL INDICATION: SCREENING 75-year-old. No hormones. No new complaints. Family history. Mother with breast cancer in her 60s. Also maternal aunt COMPARISON: MG [facility] DIGITAL MAMM-SCREEN BILATERAL from 04/11/2011 MG [facility] DIGITAL MAMM-SCREEN BILATERAL from 04/15/2012 MG [facility] DIG MAMM-SCREEN PRESLEY from 04/18/2013 MG [facility] DIG MAMM-SCREEN PRESLEY from 12/17/2014 MG [facility] DIG MAMM-SCREEN PRESLEY from 12/24/2015 MG [facility] DIG MAMM-SCREEN PRESLEY W/CAD from 01/02/2017 MG [facility] MM Dig screening mamm BI w/CAD from 04/23/2018 US BREASTLT US breast LT complete from 05/10/2018 US BREASTLT US breast LT complete from 10/24/2018 MG DIG MAMM-DX UNI-LT from 10/24/2018 MG MM DIG SCREENING MAMM BI W/CAD from 05/14/2019 TECHNIQUE: Standard CC and MLO images were obtained. R2 CAD reviewed. Bilateral digital breast tomosynthesis included. Additional axillary CC view right breast included FINDINGS: Overall lower density breast. Breast with for the most part most part fatty replacement Left breast-longstanding stable asymmetric density at the upper-outer quadrant of the left breast. This is most likely a stable focal area of denser fibroglandular tissue. Which appears similar on MLO views since 2017. And was seen on prior studies as well. It does appear to dissipate on the CC tomosynthesis view today. I would also note has been a thorough workup of this area the performed october 2018 include additional spot views which showed it to dissipate for the most part. Is also a ultrasound from both May 2018 and October 2018 which show no suspicious findings. The Right breast-no new areas of concern. Stable architecture.. Scattered benign solitary calcifications. IMPRESSION: Stable bilateral mammogram the with no new areas of significant concern Left breast.-stable with no new areas of concern The asymmetric island of density at the upper-outer quadrant left breast-stable since at least 2017. This area thoroughly evaluated in 2017 including ultrasound survey with no appreciable change on today's mammogram Ongoing annual mammography follow-up would be important and should be emphasized. (And if any palpable area should developed or progress in the interval here at the upper-outer quadrant left breast, repeat interval imaging would be warranted) BI-RAD Category: 2 Benign Finding(s) FOLLOW-UP: 1YR 1 Year Follow-up (A letter has been sent to the patient regarding results of the study.) Dictated by: Aries Deleon MD 05/14/2020 11:13 Aries Deleon MD in [place] 05/14/2020 11:13
== END ==
PROVIDERS: PCP Internal Medicine Adolescent Medicine; Visit Provider Internal Medicine Adolescent Medicine
DX: Z12.31 Encounter for screening mammogram for malignant neoplasm of breast (principal)
CPT/HCPCS: 77063; 77067

== ENCOUNTER → 2021-01-19 12:16 | Outpatient (CLI) | payer MEDICARE, SELFPAY ==
[2021-01-19 14:46] LABS: Alanine Aminotransferase 24 U/L (12-78); Albumin Level 4.4 g/dl (3.5-5.0); Albumin/Globulin Ratio 1.7 (1.1-1.8); Alkaline Phosphatase 69 U/L (38-126); Anion Gap 10.8 mEq/L (5-15); Aspartate Amino Transferase 46 U/L (14-36); Bilirubin,Total 0.8 mg/dl (0.2-1.3); Blood Urea Nitrogen 16 mg/dl (7-17); Calcium 9.4 mg/dl (8.4-10.2); Carbon Dioxide 33 mmol/L (22.0-30.0); Chloride 97 mmol/L (98-107); Chol/HDL Ratio 1.9 (1-3.5); Cholesterol 149 mg/dl (140-200); Estimated Glomerular Filt Rate 70 ml/min (>60); GFR (African American) 84 ML/MIN (>60); Globulin 2.6 g/dL (1.3-3.2); Glucose 88 mg/dl (74-100); HDL Cholesterol 80 mg/dl (40-60); Potassium 4.8 mmoL/L (3.5-5.1); Sodium 136 mmol/L (136-145); Triglycerides 80 mg/dl (30-150); VLDL Cholesterol 16 mg/dL (0-40)
[2021-01-19 14:51] LABS: Basophils % 0.6 % (0.1-2.0); Eosinophils # 0.1 K/mm3 (0.0-0.4); Eosinophils % 1.8 % (0.1-12.0); Hematocrit 39.7 % (37.0-47.0); Hemoglobin 13.6 g/dL (12.2-16.2); Lymphocytes # 1.3 K/mm3 (0.7-4.5); Lymphocytes % 25.7 % (10-50); Mean Corpuscular HGB Conc 34.2 g/dL (31.8-35.4); Mean Corpuscular Hemoglobin 31.3 pg (27.0-31.2); Mean Corpuscular Volume 91.6 fl (81-99); Monocytes # 0.4 K/mm3 (0.1-1.0); Monocytes % 7.5 % (1.7-9.3); Neutrophils # 3.4 K/mm3 (1.8-7.8); Neutrophils % 64.5 % (37.0-80.0); Platelet Count 243 K/mm3 (142-424); Red Blood Count 4.33 M/mm3 (4.20-5.40); White Blood Count 5.2 K/mm3 (4.8-10.8)
[2021-01-19 14:57] LABS: Direct LDL Cholesterol 48.93 mg/dL (100-129)
[2021-01-19 15:06] LABS: 25-OH Vitamin D, Total 55.1 ng/mL (30-100)
[2021-01-19 15:18] LABS: Thyroid Stimulating Hormone 2.13 uIU/mL (0.465-4.68)
== END ==
PROVIDERS: Visit Provider Internal Medicine Adolescent Medicine
DX: E78.5 Hyperlipidemia, unspecified (principal); M81.0 Age-related osteoporosis without current pathological fracture
CPT/HCPCS: 36415; 80053; 80061; 82306; 84443; 85025

== ENCOUNTER → 2021-05-11 10:11 | Outpatient (CLI) | payer MEDICARE, SELFPAY ==
[2021-05-11 10:26] LABS: Basophils % 0.7 % (0.1-2.0); Eosinophils # 0.1 K/mm3 (0.0-0.4); Eosinophils % 1.9 % (0.1-12.0); Hematocrit 40.4 % (37.0-47.0); Hemoglobin 14.1 g/dL (12.2-16.2); Lymphocytes # 1.4 K/mm3 (0.7-4.5); Lymphocytes % 27.8 % (10-50); Mean Corpuscular HGB Conc 34.8 g/dL (31.8-35.4); Mean Corpuscular Hemoglobin 32.4 pg (27.0-31.2); Mean Platelet Volume 7.9 fl (7.4-10.4); Monocytes # 0.4 K/mm3 (0.1-1.0); Monocytes % 7.6 % (1.7-9.3); Platelet Count 268 K/mm3 (142-424); Red Blood Count 4.34 M/mm3 (4.20-5.40); Red Cell Distribution Width 12.7 % (11.5-17.5); White Blood Count 4.9 K/mm3 (4.8-10.8)
[2021-05-11 11:20] LABS: Alanine Aminotransferase 21 U/L (12-78); Albumin Level 4.3 g/dl (3.5-5.0); Albumin/Globulin Ratio 1.6 (1.1-1.8); Alkaline Phosphatase 62 U/L (38-126); Anion Gap 5.7 mEq/L (5-15); Aspartate Amino Transferase 39 U/L (14-36); Bilirubin,Total 0.3 mg/dl (0.2-1.3); Blood Urea Nitrogen 14 mg/dl (7-17); Calcium 10.4 mg/dl (8.4-10.2); Carbon Dioxide 35 mmol/L (22.0-30.0); Chloride 102 mmol/L (98-107); Chol/HDL Ratio 1.8 (1-3.5); Cholesterol 154 mg/dl (140-200); Estimated Glomerular Filt Rate 70 ml/min (>60); GFR (African American) 84 ML/MIN (>60); Globulin 2.7 g/dL (1.3-3.2); Glucose 101 mg/dl (74-100); HDL Cholesterol 86 mg/dl (40-60); Potassium 4.7 mmoL/L (3.5-5.1); Sodium 138 mmol/L (136-145); Triglycerides 76 mg/dl (30-150); VLDL Cholesterol 15 mg/dL (0-40)
[2021-05-11 11:32] LABS: Direct LDL Cholesterol 49.28 mg/dL (100-129)
[2021-05-11 11:50] LABS: Thyroid Stimulating Hormone 3.34 uIU/mL (0.465-4.68)
== END ==
PROVIDERS: Visit Provider Internal Medicine Adolescent Medicine
DX: E78.5 Hyperlipidemia, unspecified (principal); M81.0 Age-related osteoporosis without current pathological fracture
CPT/HCPCS: 36415; 80053; 80061; 82306; 84443; 85025

== ENCOUNTER → 2021-05-12 13:08 | Outpatient (CLI) | payer MEDICARE, SELFPAY ==
--- NOTE | 2021-05-12 13:12 | MM_ITS ---
PROCEDURE INFORMATION: Exam: MG Bilateral Screening 3D Mammography Exam date and time: 05/12/2021 1:12 PM Age: 76 years old Clinical indication: Encounter for screening mammogram for malignant neoplasm of breast . Family history of breast carcinoma. TECHNIQUE: Imaging protocol: Bilateral screening tomosynthesis and 2D mammography including computer-aided detection (CAD) when performed. COMPARISON: 1. MG MM DIG SCREENING MAMM BI W/CAD 05/11/2020 4:02 PM 2. MG MM DIG SCREENING MAMM BI W/CAD 05/14/2019 10:26 AM 3. MG DIG MAMM-DX UNI-LT 10/24/2018 2:02 PM FINDINGS: MAMMOGRAPHY: Breast composition: There are scattered areas of fibroglandular density. Mass: No suspicious masses. Architectural distortion: No suspicious distortion. Calcifications: No suspicious calcifications. Asymmetric density: None. Skin thickening: None. Axillary adenopathy: None. IMPRESSION: No mammographic evidence of malignancy. Annual screening is recommended unless otherwise clinically indicated. ASSESSMENT: BI-RADS Category 1: Negative
== END ==
PROVIDERS: PCP Internal Medicine Adolescent Medicine; Visit Provider Internal Medicine Adolescent Medicine
DX: Z12.31 Encounter for screening mammogram for malignant neoplasm of breast (principal)
CPT/HCPCS: 77063; 77067

== ENCOUNTER 2022-01-28 15:41 | Emergency (ER) | payer MEDICARE, SELFPAY ==
[2022-01-28 16:41] VITALS: BP 110/60; PULSE 71; RESP 16; TEMP 37; O2SAT 97; BMI 28.3
--- NOTE | 2022-01-28 16:48 | EXP.UTC ---
Discharge Plan Disposition Patient Disposition: Home, Self-Care Condition: Good Prescriptions Prescriptions: No Action atorvastatin 40 mg tablet 40 mg PO DAILY aspirin 81 MG tablet,delayed release (DR/EC) 81 mg PO DAILY Activity Restrictions/Add. Instructions Additional Instructions/Restrictions: You have been tested for COVID19. Please isolate yourself as if you are positive until test results received. Current CDC guidelines are quarantine X 5 days from onset of symptoms, with an additional 5 days of mask wearing at all times. If you have difficulty breathing, signs of dehydration, etc please seek treatment at ER. Clinical Impressions Clinical Impression: COVID-19 Discharge ED Provider: Elli Mercedes [facility] [place] HPI General Stated complaint: covid test,[place],Loss of smell Mode of Arrival: Ambulatory Source of Information: Patient Time Seen by Provider: 01/28/22 17:04 Description of Symptoms (Recalled from Triage Doc. by RN): pt had positive covid test at home. here today to get a confirmative test. pt states that today she developed a cough and lost taste and smell. HEENT Symptoms (Recalled from RN notes): Yes Resp Symptoms (Recalled from RN notes): Yes Skin Symptoms (Recalled from RN notes): No MS Symptoms (Recalled from RN notes): No Functional Status (Recalled from RN notes): n/a History of Present Illness Provider Complaint: Patient has had runny nose, congestion X 4 days. Had chills but no fever. Was cleaning this morning and realized she couldn't smell the cleaning solution or her candle. Took a positive home covid test which was positive. Here for confirmation test. Onset (ago): day(s) Relieving factors: none Exacerbating factors: none Associated symptoms: denies other symptoms Treatments prior to arrival: none Related Data Home Medications Medication Instructions Recorded Confirmed aspirin 81 mg tablet,delayed 81 mg PO DAILY Heart disease 06/07/17 01/28/22 release atorvastatin 40 mg tablet 40 mg PO DAILY Cholesterol 03/19/20 01/28/22 Allergies Allergy/AdvReac Type Severity Reaction Status Date / Time No Known Drug Allergies Allergy Unknown Verified 01/28/22 16:43 Worker's Comp Is this a Worker's Comp case?: No [facility] Medical History (Updated 01/28/22 @ 17:04 by STIVEN Ellis) Sinus bradycardia Social History Smoking Status: Never smoker alcohol intake: never substance use type: denies use current occupational status: retired household members: friend(s) housing: house current occupational exposures/hazards: No ROS Obtained: Yes All systems reviewed & no additional complaints except as documented ENT Ears, Nose, Mouth, and Throat: Reports nasal congestion and Reports other (loss of smell) Physical Exam General General appearance: alert and in no apparent distress Head Head exam: atraumatic, normocephalic and normal inspection ENT ENT exam: Present normal exam, normal oropharynx, mucous membranes moist, TM's normal bilaterally and normal external ear exam Neck Neck exam: Present normal inspection, full ROM and trachea midline; Absent meningismus or lymphadenopathy Chest Chest inspection: Present normal inspection and symmetric chest wall rise; Absent tenderness Respiratory Respiratory exam: Present normal lung sounds bilaterally; Absent respiratory distress Cardiovascular Cardiovascular exam: Present regular rate and normal rhythm; Absent JVD Extremities Exam Extremities exam: Present normal inspection, full ROM and normal capillary refill; Absent calf tenderness Neurological Exam Neurological exam: Present alert and oriented X3 Psychiatric Psychiatric exam: Present normal affect and normal mood Skin Skin exam: Present warm, dry, intact and normal color Lymphatic Lymphatic Findings: no adenopathy Medical Decision Making Buddy Inquiry Pt receiving controlled substance: No
[2022-01-28 17:10] VITALS: BP 110/60; PULSE 71; RESP 16; TEMP 37
--- NOTE | 2022-01-29 09:13 | PC.NURSE ---
pt called for results of covid test
== END 2022-01-28 17:10 | disposition home or self-care (01) ==
PROVIDERS: Emergency Provider Physician Assistant
DX: U07.1 COVID-19 (principal); Z79.82 Long term (current) use of aspirin; Z79.899 Other long term (current) drug therapy
CPT/HCPCS: 99212; C9803; G0463; U0003; U0005

== ENCOUNTER 2022-05-18 08:13 | Emergency (ER) | payer MEDICARE, SELFPAY ==
--- NOTE | 2022-05-18 08:22 | XR_ITS ---
FINAL REPORT CLINICAL HISTORY: fall. bruising and swelling in hand and wrist. FINDINGS: RIGHT WRIST Three views demonstrate a comminuted, impacted fracture of the distal radius with dorsal displacement of the distal fracture fragment. Fracture extends to the radiocarpal joint. There is also a fracture line seen extending to the DRUJ. There is a fracture of the ulnar styloid process. Degenerative changes are noted. IMPRESSION: Comminuted, impacted fracture of the distal radius extending to the radiocarpal joint and fracture line seen extending to the DRUJ. Fracture of the ulnar styloid process. Reviewed, Interpreted and Dictated by Bam Power III, MD Transcribed by Renee Dodd Authenticated and [facility]
[2022-05-18 08:35] VITALS: BP 123/80; PULSE 65; RESP 18; TEMP 36.6; O2SAT 97; BMI 29.2
--- NOTE | 2022-05-18 08:41 | XR_ITS ---
FINAL REPORT CLINICAL HISTORY: fall. bruising and swelling in hand and wrist. FINDINGS: RIGHT HAND Three views demonstrate no acute fracture or dislocation. There are degenerative changes, greatest at the 1st carpometacarpal joint. The soft tissues are unremarkable. IMPRESSION: No acute bony abnormality. Reviewed, Interpreted and Dictated by Bam Power III, MD Transcribed by Renee Dodd Authenticated and . [facility]
--- NOTE | 2022-05-18 09:14 | EXP.UTC ---
Discharge Plan Disposition Patient Disposition: Home, Self-Care Condition: Good Prescriptions Prescriptions: No Action atorvastatin 40 mg tablet 40 mg PO DAILY rizatriptan 10 mg tablet 10 mg PO ONCE PRN bupropion HCl 150 mg tablet extended release 24 hr 150 mg PO DAILY aspirin 81 MG tablet,delayed release (DR/EC) 81 mg PO DAILY Referrals Follow up/Referrals: Immanuel Spann DO [Staff Physician] - See instructions John Lopez MD [Primary Care Provider] - See instructions Activity Restrictions/Add. Instructions Additional Instructions/Restrictions: Rest the extremity, apply ice for 15 minutes as tolerated three or four times per day, Elevate the extremity as tolerated while you are resting. Follow up with Dr. Spann (orthopedics). I put in a referral but you need to call his office and schedule an appointment. Call his office today to get a follow up appointment there within the next few days for further treatment. Follow up with your regular doctor. GO TO THE ER FOR ANY WORSENING SYMPTOMS Clinical Impressions Clinical Impression: Closed fracture of right distal radius, Fall Discharge ED Provider: Roel Zambrano [facility] General Stated complaint: Fall 05/17 RT wrist pain Mode of Arrival: Ambulatory Source of Information: Patient Limitations: No Limitations Time Seen by Provider: 05/18/22 08:39 Description of Symptoms (Recalled from Triage Doc. by RN): PATIENT C/O INJURY TO RIGHT HAND AFTER FALLING LAST NIGHT AND TRYING TO CATCH HERSELF WITH THAT HAND. SWELLING AND BRUISING NOTED, POSITIVE RADIAL PULSE HEENT Symptoms (Recalled from RN notes): No Resp Symptoms (Recalled from RN notes): No Skin Symptoms (Recalled from RN notes): No MS Symptoms (Recalled from RN notes): Yes Functional Status (Recalled from RN notes): WNL History of Present Illness Provider Complaint: She states that she fell last night while at a ball game. She came down on her right hand and wrist. She right wrist pain and swelling since then. Related Data Home Medications Medication Instructions Recorded Confirmed aspirin 81 mg tablet,delayed 81 mg PO DAILY Heart disease 06/07/17 05/05/22 release atorvastatin 40 mg tablet 40 mg PO DAILY Cholesterol 03/19/20 05/05/22 bupropion HCl 150 mg 24 hr tablet, 150 mg PO DAILY 05/05/22 05/05/22 extended release rizatriptan 10 mg tablet 10 mg PO ONCE PRN 05/05/22 05/05/22 Allergies Allergy/AdvReac Type Severity Reaction Status Date / Time No Known Drug Allergies Allergy Unknown Verified 05/05/22 09:24 rimegepant [From [facility] ODT] AdvReac lethargic Verified 05/05/22 09:29 Worker's Comp Is this a Worker's Comp case?: No PFSH PFS Disclaimer: The information contained in this section may have been updated after the patient was seen, as this information can be updated by other users. Medical History Hyperlipidemia Sinus bradycardia Social History Smoking Status: Never smoker alcohol intake: never substance use type: denies use current occupational status: retired Travel in the last 8 weeks: None household members: friend(s) housing: house current occupational exposures/hazards: No ROS Obtained: Yes All systems reviewed & no additional complaints except as documented Constitutional Constitutional: Denies chills and Denies fever(s) Integumentary/Breasts Skin/Breast: Denies redness, Denies rash and Denies wounds Neurologic Neurologic: Denies paresthesias Physical Exam General General appearance: alert and in no apparent distress Head Head exam: atraumatic, normocephalic and normal inspection Eye Eye exam: Present normal appearance, PERRL and EOMI ENT ENT exam: Present normal exam, normal oropharynx, mucous membranes moist, TM's normal bilaterally and normal external ear exam Neck Neck exam: Present normal inspection, full ROM
[2022-05-18 10:40] VITALS: BP 123/80; PULSE 65; RESP 18; TEMP 36.6; O2SAT 97
== END 2022-05-18 10:51 | disposition home or self-care (01) ==
LOC: ER 08:17 → UTC 08:19
PROVIDERS: Emergency Provider Nurse Practitioner Family; PCP Internal Medicine Adolescent Medicine
DX: S52.501A Unspecified fracture of the lower end of right radius, initial encounter for closed fracture (principal)
CPT/HCPCS: 73110; 73130; 99212; G0463

== ENCOUNTER → 2022-05-24 11:00 | Outpatient (CLI) | payer MEDICARE, SELFPAY ==
[2022-05-24 11:06] LABS: Microscopic, Urine URINE MICROSCOPIC (MICROSCOPIC)
--- NOTE | 2022-05-24 11:20 | MM_ITS ---
PROCEDURE INFORMATION: Exam: MG Bilateral Screening 3D Mammography Exam date and time: 05/24/2022 11:10 AM Age: 77 years old Clinical indication: Screening mammogram TECHNIQUE: Imaging protocol: Bilateral Screening tomosynthesis and 2D mammography including computer-aided detection (CAD) when performed. COMPARISON: 1. MG MM DIG SCREENING MAMM BI W/CAD 05/12/2021 1:22 PM 2. MG MM DIG SCREENING MAMM BI W/CAD 05/11/2020 4:02 PM 3. MG MM DIG SCREENING MAMM BI W/CAD 05/14/2019 10:26 AM 4. MG DIG MAMM-DX UNI-LT 10/24/2018 2:02 PM FINDINGS: MAMMOGRAPHY: Breast composition: There are scattered areas of fibroglandular density. Mass: Stable benign-appearing nodules are present in the bilateral breasts. No new or morphologically suspicious nodule has developed to suggest malignancy. Architectural distortion: No new or suspicious architectural distortion. Calcifications: Stable benign-appearing calcifications are present. No new or suspicious cluster of microcalcifications have developed. Asymmetric density: No new or suspicious asymmetric density is present Skin thickening: None. Axillary adenopathy: None. IMPRESSION: No mammographic evidence of malignancy. Recommend annual screening mammography unless otherwise clinically indicated. ASSESSMENT: BI-RADS category 2: Benign
--- NOTE | 2022-05-24 11:20 | XR_ITS ---
FINAL REPORT TECHNIQUE: Chest PA & Lateral CLINICAL HISTORY: preop mild cough COMPARISON: May 2017 FINDINGS: 2 views of the chest were performed. The heart size is normal. The mediastinum is within normal limits. There is minimal left base scarring or atelectasis. There are no pleural effusions. There is no pneumothorax. The bony thorax appears intact. IMPRESSION: Minimal left base scarring or atelectasis. Reviewed, Interpreted and Dictated by Bam Power III, MD Transcribed by Collin Ribeiro Authenticated and [facility]
[2022-05-24 12:21] LABS: Basophils # 0.1 K/mm3 (0-0.2); Basophils % 1.1 % (0.1-2.0); Eosinophils # 0.1 K/mm3 (0.0-0.4); Eosinophils % 1.4 % (0.1-12.0); Hematocrit 41.2 % (37.0-47.0); Hemoglobin 13.6 g/dL (12.2-16.2); Lymphocytes # 1.5 K/mm3 (0.7-4.5); Lymphocytes % 25.2 % (10-50); Mean Corpuscular Hemoglobin 31.4 pg (27.0-31.2); Mean Platelet Volume 8.1 fl (7.4-10.4); Monocytes # 0.4 K/mm3 (0.1-1.0); Monocytes % 6.1 % (1.7-9.3); Neutrophils % 66.2 % (37.0-80.0); Platelet Count 281 K/mm3 (142-424); Red Blood Count 4.34 M/mm3 (4.20-5.40); Red Cell Distribution Width 12.7 % (11.5-17.5); White Blood Count 6.1 K/mm3 (4.8-10.8)
[2022-05-24 12:54] LABS: Appearance,Urine CLEAR (Clear); Bilirubin,Urine Negative (Negative); Blood, Urine Negative (Negative); Color,Urine YELLOW (Yellow); Glucose,Urine (UA) Negative (Negative); Ketones,Urine Negative (Negative); Leukocyte Esterase,Urine 1+ (Negative); Nitrate,Urine Negative (Negative); PH,Urine 6.5 (5.0-8.5); Protein,Urine Negative (Negative); Urobilinogen,Urine 0.2 EU/dl (0.2)
[2022-05-24 12:56] LABS: Chloride 103 mmol/L (98-107)
[2022-05-24 12:57] LABS: Potassium 4.3 mmoL/L (3.5-5.1); Sodium 140 mmol/L (136-145)
[2022-05-24 12:59] LABS: Alanine Aminotransferase 22 U/L (12-78); Alkaline Phosphatase 81 U/L (38-126); Anion Gap 11.3 mEq/L (5-15); Aspartate Amino Transferase 37 U/L (14-36); Bilirubin,Total 0.4 mg/dl (0.2-1.3); Blood Urea Nitrogen 15 mg/dl (7-17); Carbon Dioxide 30 mmol/L (22.0-30.0); Estimated Glomerular Filt Rate 61 ml/min (>60); GFR (African American) 73 ML/MIN (>60)
[2022-05-24 13:00] LABS: Albumin Level 4.4 g/dl (3.5-5.0); Albumin/Globulin Ratio 1.8 (1.1-1.8); Calcium 10.3 mg/dl (8.4-10.2); Globulin 2.5 g/dL (1.3-3.2); Glucose 92 mg/dl (74-100); Total Protein,Serum 6.9 g/dl (6.3-8.2)
[2022-05-24 13:12] LABS: Bacteria,Urine Trace /lpf; Squamous Epithelial Cell,Urine Occasional #/hpf (0-5)
== END ==
PROVIDERS: PCP Internal Medicine Adolescent Medicine; Visit Provider Physician Assistant Surgical
DX: Z01.818 Encounter for other preprocedural examination (principal); I20.8 Other forms of angina pectoris; Z12.31 Encounter for screening mammogram for malignant neoplasm of breast; R82.90 Unspecified abnormal findings in urine
CPT/HCPCS: 36415; 71046; 77063; 77067; 80053; 81001; 85025; 87086; 87088; 87186

== ENCOUNTER 2022-05-29 06:52 | Day surgery (SDC) | payer MEDICARE, SELFPAY ==
[2022-05-26 09:14] VITALS: BMI 28.3
[2022-05-29] VITALS (7 sets, daily range): BP systolic 118–144; BP diastolic 52–85; PULSE 55–68; RESP 16–18; TEMP 36.2–36.4; O2SAT 91–96
--- NOTE | 2022-05-29 07:53 | P.PN_ITS ---
[facility] Disclaimer: The information contained in this section may have been updated after the patient was seen, as this information can be updated by other users. Medical History (Updated 05/29/22 @ 07:38 by Sindy Cope RN) Depression History of COVID-19 History of migraine Hyperlipidemia Sinus bradycardia Surgical History History of abdominoplasty History of surgery Family History Other Family history of cancer Family history of cardiac disorder Social History (Updated 05/29/22 @ 07:19 by Sindy Cope RN) Smoking Status: Never smoker alcohol intake: never substance use type: denies use current occupational status: retired Travel in the last 8 weeks: None household members: friend(s) housing: house current occupational exposures/hazards: No [facility] Anesthesia Checklist Structural Data Admitted From: Home Planned Operative Procedure/s: ORIF Right Distal Radius Consent for Planned Operative Procedure(s) Verified: Yes Verified Documents: Surgical Consent and History and Physical NPO Status Verified Time NPO: 00:00 Additional verifications Anesthesia Reactions: No Hx Blood Transfusions: No Blood Transfusion Reaction: No Airway Assessment C-Spine Mobility Assessed: Yes TMJ Mobility Assessed: Yes Dentition: Good Dentition Neurological Assessment Level of Consciousness: Awake and Alert Anesthesia Plan Anesthesia Risk discussed: Yes Anesthesia Plan: Verified Anesthesia Type: MAC w/Block (Right Supraclavicular Nerve Block. Risks/benefits explained. Pt verbalized understanding)
--- NOTE | 2022-05-29 10:03 | XR_ITS ---
FINAL REPORT CLINICAL HISTORY: WRIST IN OR, FT 0.6min FINDINGS: FLUOROSCOPY Fluoroscopy was obtained in the OR for the right wrist. Two spot films were obtained in 0.6 minutes. IMPRESSION: Two spot films were obtained in 0.6 minutes. Reviewed, Interpreted and Dictated by Bam Power III, MD Transcribed by Veronica Alvarez Authenticated and [facility]
--- NOTE | 2022-05-29 10:18 | P.OP_ITS ---
Date of procedure: 05/29/22 Pre-op Diagnosis:: Right distal radius fracture intra-articular 3 part Post-op Diagnosis:: Same Procedure performed:: Open reduction internal fixation right distal radius fracture with volar plating, intra-articular 3 part. 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 Right arm marked yes my initials. Transferred operative suite. Placed upon operating bed. After undergoing a block with anesthesia. Right upper extremity was then prepped and draped in normal sterile fashion. Once prepped and draped final operative timeout performed to identify proper patient procedure and extremity. Everyone involved in the case agreed. There were no counter indications to beginning. Did receive preoperative antibiotics. Marking pen was used to make planned incision over the volar aspect of the right distal radius. Esmarch was used to exsanguinate extremity pneumatic tourniquet plated 250 mmHg. Skin knife was used to incise the skin. FCR tendon sheath was opened FCR tendon was retracted radially throughout the procedure for protection of the radial artery. Self-retaining retractor was placed. Floor of the FCR was opened. Dissection was taken down to an L-type release of pronator quadratus. To identify the fracture site. Fracture hematoma seen and evacuated. X-ray was brought into identify nature of the fracture. There was intra- articular split with dorsal comminution. Reduction maneuver performed. Pulmonary reduction held with K wire. Plate selected from the [employer] volar distal radius plate set. Narrow plate selected. Plate was then placed on distal radius under direct visualization on the x-ray reduction of the radius was confirmed on the AP and lateral views. Plate was held to the bone with a cortical screw in the shaft. Then the distal locking screws were placed in appropriate projections to capture distal radial bone fragments. This gave good sikhism of radial height neutral alignment as well as inclination. There is also some comminution at the radial styloid. X-ray confirmed good extra- articular placement of all the distal locking screws. 2 additional locking screws were placed in the shaft. Copious irrigation wound performed. X-rays knee AP and lateral view were taken and saved. Deep layers closed with Vicryl stitch. Skin closed with nylon stitch. Sterile hand dressing placed. With a volar splint placed. And a sling. Patient taken recovery stable condition. Condition: stable Disposition: PACU Complications:: None apparent.
== END 2022-05-29 11:15 | disposition home or self-care (01) ==
PROVIDERS: PCP Internal Medicine Adolescent Medicine; Visit Provider Orthopaedic Surgery
PROC: (CPT 25609; principal; 2022-05-29 08:15)
DX: S52.571A Other intraarticular fracture of lower end of right radius, initial encounter for closed fracture (principal); S52.611A Displaced fracture of right ulna styloid process, initial encounter for closed fracture; W10.8XXA Fall (on) (from) other stairs and steps, initial encounter; Y92.39 Other specified sports and athletic area as the place of occurrence of the external cause
CPT/HCPCS: 25609; 73100; 76000; C1713; C1776; J2405

== ENCOUNTER → 2022-06-13 09:08 | Outpatient (CLI) | payer MEDICARE, SELFPAY ==
--- NOTE | 2022-06-13 09:13 | XR_ITS ---
FINAL REPORT CLINICAL HISTORY: S/P ORIF rt wrist COMPARISON: May 18, 2022 FINDINGS: RIGHT WRIST Three views of the right wrist obtained. There are postoperative changes of the distal radius from ORIF. Distal radial and ulnar styloid process fractures are stable. The visualized joint spaces are normally aligned. There are moderate degenerative changes of the 1st CMC joint. The soft tissues are unremarkable. IMPRESSION: Postoperative changes with stable distal radial and ulnar styloid process fractures. Reviewed, Interpreted and Dictated by Bam Power III, MD Transcribed by Jocelyn Parekh Authenticated and [facility]
== END ==
PROVIDERS: PCP Internal Medicine Adolescent Medicine; Visit Provider Orthopaedic Surgery
DX: S52.501A Unspecified fracture of the lower end of right radius, initial encounter for closed fracture (principal); M25.532 Pain in left wrist
CPT/HCPCS: 73110

== ENCOUNTER 2022-06-13 10:42 | Outpatient (RCR) | payer MEDICARE, SELFPAY | END 2022-06-13 12:00 | disposition home or self-care (01) | LOC: OT 10:42 | PROVIDERS: Visit Provider Orthopaedic Surgery | DX: S52.501A Unspecified fracture of the lower end of right radius, initial encounter for closed fracture (principal) ==

== ENCOUNTER → 2022-07-11 09:15 | Outpatient (CLI) | payer MEDICARE, SELFPAY ==
--- NOTE | 2022-07-11 09:19 | XR_ITS ---
FINAL REPORT CLINICAL HISTORY: ORIF wrist fx COMPARISON: 06/13/2022 FINDINGS: Right wrist Three views were obtained. Sideplate and screws are seen securing a healed fracture deformity of the distal radial metaphysis. There is been progressive healing. There is intra-articular extension of the fracture line to the radiocarpal joint. Ulnar styloid exists as a free fragment. 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 IMPRESSION: Degenerative and postoperative change as detailed above. Reviewed, Interpreted and Dictated by Elvin Mederos MD Transcribed by Veronica Alvarez Authenticated and [facility]
== END ==
PROVIDERS: PCP Internal Medicine Adolescent Medicine; Visit Provider Orthopaedic Surgery
DX: S52.501A Unspecified fracture of the lower end of right radius, initial encounter for closed fracture (principal); M25.531 Pain in right wrist
CPT/HCPCS: 73110

== ENCOUNTER → 2022-08-10 07:18 | Outpatient (CLI) | payer MEDICARE, SELFPAY ==
--- NOTE | 2022-08-10 07:22 | XR_ITS ---
FINAL REPORT CLINICAL HISTORY: ORIF rt wrist COMPARISON: 07/11/2022 FINDINGS: RIGHT WRIST Three views demonstrate postoperative changes of ORIF of a distal radial fracture. There is also a chronic fracture of the ulnar styloid process. Severe degenerative changes are seen of the 1st carpometacarpal joint. The visualized joint spaces are normally aligned. The soft tissues are unremarkable. IMPRESSION: ORIF of the distal radius. No acute bony abnormality. Reviewed, Interpreted and Dictated by Bam Power III, MD Transcribed by Renee Dodd Authenticated and [facility]
== END ==
PROVIDERS: PCP Internal Medicine Adolescent Medicine; Visit Provider Orthopaedic Surgery
DX: S52.611A Displaced fracture of right ulna styloid process, initial encounter for closed fracture (principal)
CPT/HCPCS: 73110

== ENCOUNTER → 2022-09-13 09:11 | Outpatient (CLI) | payer MEDICARE, SELFPAY ==
[2022-09-13 10:20] LABS: Basophils % 0.8 % (0.1-2.0); Eosinophils # 0.1 K/mm3 (0.0-0.4); Eosinophils % 1.5 % (0.1-12.0); Hematocrit 43.1 % (37.0-47.0); Hemoglobin 14.1 g/dL (12.2-16.2); Lymphocytes # 1.3 K/mm3 (0.7-4.5); Lymphocytes % 26.8 % (10-50); Mean Corpuscular HGB Conc 32.7 g/dL (31.8-35.4); Mean Corpuscular Hemoglobin 31.2 pg (27.0-31.2); Mean Corpuscular Volume 95.6 fl (81-99); Mean Platelet Volume 7.8 fl (7.4-10.4); Monocytes # 0.3 K/mm3 (0.1-1.0); Monocytes % 6.6 % (1.7-9.3); Neutrophils % 64.3 % (37.0-80.0); Platelet Count 253 K/mm3 (142-424); Red Blood Count 4.51 M/mm3 (4.20-5.40); Red Cell Distribution Width 12.6 % (11.5-17.5); White Blood Count 4.7 K/mm3 (4.8-10.8)
[2022-09-13 10:53] LABS: Alanine Aminotransferase 18 U/L (12-78); Albumin Level 4.3 g/dl (3.5-5.0); Albumin/Globulin Ratio 1.9 (1.1-1.8); Alkaline Phosphatase 64 U/L (38-126); Anion Gap 3.4 mEq/L (5-15); Aspartate Amino Transferase 34 U/L (14-36); Bilirubin,Total 0.4 mg/dl (0.2-1.3); Blood Urea Nitrogen 17 mg/dl (7-17); Calcium 9.5 mg/dl (8.4-10.2); Carbon Dioxide 33 mmol/L (22.0-30.0); Chloride 103 mmol/L (98-107); Chol/HDL Ratio 1.8 (1-3.5); Cholesterol 159 mg/dl (140-200); Estimated Glomerular Filt Rate 69 ml/min (>60); GFR (African American) 84 ML/MIN (>60); Globulin 2.3 g/dL (1.3-3.2); Glucose 100 mg/dl (74-100); HDL Cholesterol 86 mg/dl (40-60); Potassium 4.4 mmoL/L (3.5-5.1); Sodium 135 mmol/L (136-145); Total Protein,Serum 6.6 g/dl (6.3-8.2); Triglycerides 58 mg/dl (30-150); VLDL Cholesterol 12 mg/dL (0-40)
[2022-09-13 11:04] LABS: Direct LDL Cholesterol 59.55 mg/dL (100-129)
[2022-09-13 11:18] LABS: 25-OH Vitamin D, Total 56.8 ng/mL (30-100)
[2022-09-13 11:23] LABS: Thyroid Stimulating Hormone 2.33 uIU/mL (0.465-4.68)
[2022-09-13 11:43] LABS: Vitamin B12 638 pg/mL (239-931)
== END ==
PROVIDERS: PCP Internal Medicine Adolescent Medicine; Visit Provider Internal Medicine Adolescent Medicine
DX: E78.5 Hyperlipidemia, unspecified (principal); M81.0 Age-related osteoporosis without current pathological fracture; G60.9 Hereditary and idiopathic neuropathy, unspecified
CPT/HCPCS: 36415; 80053; 80061; 82306; 82607; 84443; 85025

== ENCOUNTER 2022-10-06 10:00 | Outpatient (RCR) | payer MEDICARE, SELFPAY ==
--- NOTE | 2022-07-17 09:09 | HMH.OTOPEV ---
OT Inpatient Evaluation Rehab OT Outpatient Eval Start: 07/17/22 08:55 Freq: Status: Active Protocol: Document 07/17/22 08:56 DEMETRIO (Rec: 07/17/22 09:08 DEMETRIO [id number]) E-signed By Elva Ferreira, OT Outpatient Therapy Subjective History Subjective History 77 years old female referred to skilled OP OT Services for R wrist ORIF. DOS- 05/29/22. Patient surffered from a R distal radius fx and is 7 weeks out from surgery. 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 Symptoms Relieved By Nothing Symptoms Aggravated By Physical Activity Prior Functional Limitations None Current Functional Limitations Reaching,Lifting,Recreation Activity Symptom Description Constant and Continuous Level of pain today (0-10) 0 Pain scale - at its best (0-10) 0 Pain scale - at its worst (0-10) 3 Wrist/Hand Eval Wrist Range of Motion Right Wrist Extension Active Range of Motion ( 46 degrees) Wrist Flexion Active Range of Motion ( 35 degrees) Wrist Radial Deviation Active Range of 11 Motion (degrees) Wrist Ulnar Deviation Active Range of 12 Motion (degrees) Forearm Supination Active Range of 80 Motion (degrees) Forearm Pronation Active Range of Motion 90 (degrees) Journeyman Powerhouse Operator/Pinch Strength Right Journeyman Powerhouse Operator Strength Measurement (lbs) 15 Left Journeyman Powerhouse Operator Strength Measurement (lbs) 45 OT Outpatient Assessment Impairments Problems/Impairments Impaired Range of Motion, Impaired Strength,Subjective C /O Pain Prognosis Rehab Potential Good Clinical Impression Consistent with Diagnosis Yes Short Term Goals Number of Weeks 2 Increase Range of Motion Yes: AROM of L UE wrist flex: 45; ext: 55; RD: 15; UD: 15; SUP: 85 Increase Strength Yes: Improve R intake rn strength: 20# Decrease Subjective C/O Pain Yes: 2/10 pain at worst Patient to be Ind w/ HEP Yes: AAROM Patient to be Ind w/ Advanced HEP Yes: Strengthening Fdc Goals Number of Weeks 4 Increase Range of Motion Yes: AROM of L UE wrist flex: 55; ext: 65; RD: 20; UD: 25; SUP: 90 Increase Strength Yes: Improve R intake rn strength: 25# Decrease Subjective C/O Pain Yes: 1/10 pain at worst Patient to be Ind w/ HEP Yes: AROM Patient to b
--- NOTE | 2022-08-14 08:58 | HMH.RHREAS ---
Rehab Reassessment Rehab OP Re-assessment Start: 08/14/22 08:14 Freq: Status: Active Protocol: Document 08/14/22 08:31 MARCELINAOPAL (Rec: 08/14/22 08:58 MARCELINAOPAL [id number]) E-signed By Elva Ferreira, OT Rehab Re-assessment Subjective Subjective I told the doctor about my right because its not getting any better. Objective Objective Notes 77 years old female referred to skilled OP OT Services for R wrist ORIF. DOS- 05/29/22. Patient surffered from a R distal radius fx and is 11 weeks out from surgery. Patient has participated well in skilled OP OT services 2x/ wk for the past 30 days with focus on addressing R UE wrist PROM, AAROM, AROM, strengthening and pain modalities. Patient return to clinic with additional orders to address the R shld pain as well as continue R hand. During Patient's fall that resulted in the fx of the R wrist, patient has verbalize to OT that the right shoulder has been hurting as well. OT will add additional goals to POC with R wrist and R shld with focus on improving PROM, AROM, strengthening and decreasing pain. Assessment Progress Assessment Progressing as Expected Assessment Notes Evaluation on 07/17/22 AROM of RUE wrist flex: 35 ext: 46 RD: 11 UD: 12 L hand: 45# R hand: 15# Re-assessment on 08/14/22 AROM of RUE wrist flex: 40 ext: 47 RD: 18 UD: 15 L hand: 45# R hand: 25# 0/10 AROM of R UE shld flex:136 abd:
== END 2022-10-06 10:05 | disposition home or self-care (01) ==
LOC: OT 10:00
PROVIDERS: PCP Internal Medicine Adolescent Medicine; Visit Provider Orthopaedic Surgery
DX: S62.91XA Unspecified fracture of right hand, initial encounter for closed fracture (principal)
CPT/HCPCS: 97010; 97014; 97018; 97110; 97140; 97164; 97165; 97530; G0283

== ENCOUNTER → 2022-10-12 09:27 | Outpatient (CLI) | payer MEDICARE, SELFPAY ==
--- NOTE | 2022-10-12 09:43 | XR_ITS ---
FINAL REPORT TECHNIQUE: Bone mineral density was calculated of the lumbar spine and hip. CLINICAL HISTORY: .osteoporosis COMPARISON: None FINDINGS: Using L1-4, the bone mineral density of the spine is 0.897 g/cm2, corresponding to T-score of -1.4. This represents low bone mineral density. Using the right hip, the bone mineral density of the femoral neck is 0.661 g/cm2, corresponding to a T-score of -1.7. This represents low bone mineral density. FRAX 10 year fracture risk is 4.3% for a hip fracture and 20% for a major osteoporotic fracture. NOTE: T-score: Standard deviation compared with peak bone mass of young adult mean. *Following the recommendations of the International Society of Bone densitometry, classification of hip BMD is based on the lower of two T-scores; total hip or femoral neck. IMPRESSION: Diminished bone mineral density of the lumbar spine and left hip consistent with low bone mineral density. Reviewed, Interpreted and Dictated by Oneida Novak MD Transcribed by Lin Espitia Authenticated and [facility]
== END ==
PROVIDERS: PCP Internal Medicine Adolescent Medicine; Visit Provider Internal Medicine Adolescent Medicine
DX: Z78.0 Asymptomatic menopausal state (principal); Z13.820 Encounter for screening for osteoporosis
CPT/HCPCS: 77080

== ENCOUNTER → 2023-05-16 08:40 | Outpatient (CLI) | payer MEDICARE, SELFPAY ==
[2023-05-16 09:11] LABS: Basophils % 0.7 % (0.1-2.0); Eosinophils # 0.2 K/mm3 (0.0-0.4); Hematocrit 42.5 % (37.0-47.0); Hemoglobin 14.4 g/dL (12.2-16.2); Lymphocytes # 1.2 K/mm3 (0.7-4.5); Mean Corpuscular HGB Conc 33.9 g/dL (31.8-35.4); Mean Corpuscular Hemoglobin 33.4 pg (27.0-31.2); Mean Corpuscular Volume 98.3 fl (81-99); Mean Platelet Volume 8.6 fl (7.4-10.4); Monocytes # 0.4 K/mm3 (0.1-1.0); Monocytes % 6.8 % (1.7-9.3); Neutrophils # 3.5 K/mm3 (1.8-7.8); Neutrophils % 66.4 % (37.0-80.0); Platelet Count 245 K/mm3 (142-424); Red Blood Count 4.32 M/mm3 (4.20-5.40); Red Cell Distribution Width 12.8 % (11.5-17.5); White Blood Count 5.2 K/mm3 (4.8-10.8)
[2023-05-16 10:19] LABS: Chloride 103 mmol/L (98-107); Sodium 139 mmol/L (136-145)
[2023-05-16 10:21] LABS: Blood Urea Nitrogen 20 mg/dl (7-17); Estimated Glomerular Filt Rate 69 ml/min (>60); GFR (African American) 84 ML/MIN (>60)
[2023-05-16 10:22] LABS: Alanine Aminotransferase 25 U/L (12-78); Albumin Level 4.3 g/dl (3.5-5.0); Albumin/Globulin Ratio 1.8 (1.1-1.8); Alkaline Phosphatase 61 U/L (38-126); Aspartate Amino Transferase 41 U/L (14-36); Bilirubin,Total 0.4 mg/dl (0.2-1.3); Calcium 9.2 mg/dl (8.4-10.2); Carbon Dioxide 34 mmol/L (22.0-30.0); Cholesterol 156 mg/dl (140-200); Globulin 2.4 g/dL (1.3-3.2); Glucose 89 mg/dl (74-100); Total Protein,Serum 6.7 g/dl (6.3-8.2); Triglycerides 63 mg/dl (30-150); VLDL Cholesterol 13 mg/dL (0-40)
[2023-05-16 10:23] LABS: HDL Cholesterol 78 mg/dl (40-60)
[2023-05-16 10:33] LABS: Direct LDL Cholesterol 66.43 mg/dL (100-129)
[2023-05-16 10:53] LABS: Thyroid Stimulating Hormone 2.95 uIU/mL (0.465-4.68)
[2023-05-16 13:10] LABS: 25-OH Vitamin D, Total 62.1 ng/mL (30-100)
[2023-05-16 13:42] LABS: Vitamin B12 764 pg/mL (239-931)
== END ==
PROVIDERS: PCP Internal Medicine Adolescent Medicine; Visit Provider Internal Medicine Adolescent Medicine
DX: E78.2 Mixed hyperlipidemia (principal); E78.5 Hyperlipidemia, unspecified; G60.9 Hereditary and idiopathic neuropathy, unspecified; M81.0 Age-related osteoporosis without current pathological fracture
CPT/HCPCS: 36415; 80053; 80061; 82306; 82607; 84443; 85025

== ENCOUNTER → 2023-05-29 13:51 | Outpatient (CLI) | payer MEDICARE, SELFPAY ==
--- NOTE | 2023-05-29 13:56 | MM_ITS ---
PROCEDURE INFORMATION: Exam: MG Bilateral Screening 3D Mammography Exam date and time: 05/29/2023 1:44 PM Age: 78 years old Clinical indication: Screening examination TECHNIQUE: Imaging protocol: Bilateral Screening tomosynthesis and 2D mammography including computer-aided detection (CAD) when performed. COMPARISON: 1. MG MM DIG SCREENING MAMM BI W/CAD 05/24/2022 11:10 AM 2. MG MM DIG SCREENING MAMM BI W/CAD 05/12/2021 1:22 PM FINDINGS: MAMMOGRAPHY: Breast composition: There are scattered areas of fibroglandular density. Mass: None. Architectural distortion: None. Calcifications: No suspicious calcifications. Asymmetric density: None. Skin thickening: None. Axillary adenopathy: None. IMPRESSION: No mammographic evidence of malignancy. Annual screening is recommended unless otherwise clinically indicated. ASSESSMENT: BI-RADS Category 1: Negative
== END ==
PROVIDERS: PCP Internal Medicine Adolescent Medicine; Visit Provider Internal Medicine Adolescent Medicine
DX: Z12.31 Encounter for screening mammogram for malignant neoplasm of breast (principal)
CPT/HCPCS: 77063; 77067

== ENCOUNTER 2023-12-05 11:15 | Outpatient (CLI) | payer MEDICARE, SELFPAY ==
--- NOTE | 2023-12-05 11:26 | XR_ITS ---
FINAL REPORT CLINICAL HISTORY: RIGHT HIP PAIN COMPARISON: None FINDINGS: RIGHT HIP Two views of the right hip with an AP view of the pelvis demonstrate no acute fracture or dislocation. There is mild degenerative change of the right hip The visualized bony structures are well aligned. No soft tissue abnormality is seen. IMPRESSION: Mild degenerative change without acute bony abnormality. Reviewed, Interpreted and Dictated by Bam Power III, MD Transcribed by Lin Espitia Authenticated and . [facility]
== END 2023-12-05 23:59 | disposition home or self-care (01) ==
LOC: RAD 11:22
PROVIDERS: PCP Internal Medicine Adolescent Medicine; Visit Provider Internal Medicine Adolescent Medicine
DX: M25.551 Pain in right hip (principal)
CPT/HCPCS: 73502

== ENCOUNTER 2024-07-29 12:50 | Outpatient (CLI) | payer MEDICARE, SELFPAY ==
--- NOTE | 2024-07-29 12:53 | MM_ITS ---
PROCEDURE INFORMATION: Exam: MG Bilateral Screening 3D Mammography Exam date and time: 07/29/2024 1:14 PM Age: 79 years old Clinical indication: Screening examination TECHNIQUE: Imaging protocol: Bilateral Screening tomosynthesis and 2D mammography including computer-aided detection (CAD) when performed. COMPARISON: 1. MG MM DIG SCREENING MAMM BI W/CAD 05/29/2023 1:44 PM 2. MG MM DIG SCREENING MAMM BI W/CAD 05/24/2022 11:10 AM FINDINGS: MAMMOGRAPHY: Breast composition: There are scattered areas of fibroglandular density. Mass: None. Architectural distortion: None. Calcifications: No suspicious calcifications. Asymmetric density: None. Skin thickening: None. Axillary adenopathy: None. IMPRESSION: No mammographic evidence of malignancy. Annual screening is recommended unless otherwise clinically indicated. ASSESSMENT: BI-RADS Category 1: Negative.
== END 2024-07-29 23:59 | disposition home or self-care (01) ==
LOC: RAD 12:51
PROVIDERS: PCP Internal Medicine Adolescent Medicine; Visit Provider Internal Medicine Adolescent Medicine
DX: Z12.31 Encounter for screening mammogram for malignant neoplasm of breast (principal)
CPT/HCPCS: 77063; 77067

== ENCOUNTER 2025-04-06 10:01 | Outpatient (CLI) | payer MEDICARE, SELFPAY ==
[2025-04-06 10:28] LABS: Hematocrit 41.6 % (37.0-47.0); Hemoglobin 14.0 g/dL (12.2-16.2); Immature Granulocytes % 0.2 %; Mean Corpuscular HGB Conc 33.7 g/dL (31.8-35.4); Mean Corpuscular Hemoglobin 32.3 pg (27.0-31.2); Mean Corpuscular Volume 96.1 fl (81-99); Nucleated Red Blood Cells % 0 %; Platelet Count 223 K/mm3 (142-424); Red Blood Count 4.33 M/mm3 (4.20-5.40); Red Cell Distribution Width-SD 41.0 fL; White Blood Count 4.5 K/mm3 (4.8-10.8)
[2025-04-06 11:46] LABS: Alanine Aminotransferase 21 U/L (12-78); Albumin Level 4.4 g/dl (3.5-5.0); Albumin/Globulin Ratio 1.5 (1.1-1.8); Alkaline Phosphatase 71 U/L (38-126); Anion Gap 7.1 mEq/L (5-15); Aspartate Amino Transferase 31 U/L (14-36); Blood Urea Nitrogen 19 mg/dl (7-17); Calcium 9.8 mg/dl (8.4-10.2); Carbon Dioxide 31 mmol/L (22.0-30.0); Chloride 103 mmol/L (98-107); Cholesterol 169 mg/dl (140-200); Creatinine,Serum 0.90 mg/dl (0.52-1.04); Estimated Glomerular Filt Rate 60 ml/min (>60); GFR (African American) 73 ML/MIN (>60); Globulin 3.0 g/dL (1.3-3.2); Glucose 101 mg/dl (74-100); HDL Cholesterol 100 mg/dl (40-60); Potassium 4.1 mmoL/L (3.5-5.1); Sodium 137 mmol/L (136-145); Total Protein,Serum 7.4 g/dl (6.3-8.2); Triglycerides 77 mg/dl (30-150)
[2025-04-06 12:00] LABS: 25-OH Vitamin D, Total 65.1 ng/mL (30-100)
[2025-04-06 12:01] LABS: Bilirubin,Total 0.5 mg/dl (0.2-1.3)
[2025-04-06 12:05] LABS: Free Thyroxine Index 2.8 ug/dL (5.93-13.13); T4 (Thyroxine) 8.9 ug/dl (5.53-11.0); Triiodothryronine (T3) Uptake 32 % (23.5-40.5)
[2025-04-06 12:18] LABS: Thyroid Stimulating Hormone 2.62 uIU/mL (0.465-4.68)
== END 2025-04-06 23:59 | disposition home or self-care (01) ==
LOC: LAB 10:04
PROVIDERS: PCP Internal Medicine Adolescent Medicine; Visit Provider Internal Medicine Adolescent Medicine
DX: E78.5 Hyperlipidemia, unspecified (principal); M81.0 Age-related osteoporosis without current pathological fracture
CPT/HCPCS: 36415; 80053; 80061; 82306; 84436; 84443; 84479; 85025

== ENCOUNTER 2025-04-21 12:43 | Outpatient (CLI) | payer MEDICARE, SELFPAY ==
--- NOTE | 2025-04-21 | CA_ITS ---
APPROVED REPORT EXAM: Comprehensive 2D, Doppler, and color-flow Echocardiogram Grinding Supervisor: Dorothy Keenan, RCS, RVS Ht: 5 ft 5 in Wt: 160lbs BSA: 1.80 BP: 132/74 mmHg Indications: CM, Apical ballooning, HLD, Diastolic dysfunction 2D Dimensions Left Atrium 3.01 cm F: 2.7 - 3.8 LA Volume 59.60 mL LA Volume Index [id number] mL/m2 (M/F) 16-34 M-Mode Dimensions RVDd 2.30 cm (0.9-2.6) LA Diam 2.89 cm (1.9-4.0) LVDd 4.99 cm (3.5-5.7) LVDs 3.09 cm (3.5-5.7) IVSd 1.04 cm (0.6-1.1) PWd 1.00 cm (0.6-1.1) EF (Teich) 68.10% EPSs 0.39 cm FS 38.10% EDV (Teich) 117.70 mL ESV (Teich) 37.60 mL LV Diastology E Decel Time 410 (160-240 msec) E/A Ratio 0.65 MED A' 11.80 cm/s LAT A' 14.60 cm/s Aortic Valve GERALDO Index 1.52 cm2/m2 AoV Peak Ken. 125.0 (50-130 cm/s) AO Peak GR. 6.20 mmHg AO Mean GR. 3.10 (<5 mmHg) AO VTI 22.0 (18-25 cm) GERALDO (VTI) 2.80 (2.5-4.5 cm2) Mitral Valve MV A Velocity 87.0 (40-130 cm/s) E/A Ratio 0.65 Pulmonary Valve PV Peak Velocity 78.0 (50-150 cm/s) Tricuspid Valve TR P. Velocity 194.00 cm/s RAP Estimate 10.00 mmHg RVSP 25.10 mmHg Left Ventricle The left ventricle is normal size. Left ventricular systolic function is normal. The left ventricular ejection fraction is within the normal range. Proximal septal thickening is present. There is normal LV segmental wall motion. The left ventricular diastolic function is normal. LVEF is 60% Right Ventricle The right ventricle is normal size. The right ventricular systolic function is normal. Atria The left atrium size is normal. The right atrium size is normal. The interatrial septum is aneurysmal. There is no color Doppler evidence of interatrial shunt. Aortic Valve The aortic valve is mildly thickened. There is no hemodynamically significant aortic valvular stenosis. Trace aortic regurgitation is present. Mitral Valve The mitral valve is normal in structure. No evidence of mitral valve stenosis. Trace mitral regurgitation is present. Tricuspid Valve The tricuspid valve leaflets are thin and pliable. Mild tricuspid regurgitation. RVSP is 20-25 mmHg. Pulmonic Valve The pulmonary valve is grossly normal in structure. Trace pulmonic valve regurgitation is present. Great Vessels The aortic root is normal in size. IVC is normal in size and collapses >50% with inspiration. Pericardium There is no pericardial effusion. Other Information Study Quality: Fair Conclusion Normal biventricular systolic function. Mild biatrial dilation. Mild TR. There is no color Doppler evidence of interatrial shunt. Electronically signed by : Riya Perry MD 04/28/2025 00:10:49
== END 2025-04-21 23:59 | disposition home or self-care (01) ==
LOC: RT 12:43
PROVIDERS: PCP Internal Medicine Adolescent Medicine; Visit Provider Internal Medicine Adolescent Medicine
DX: I07.1 Rheumatic tricuspid insufficiency (principal); I51.81 Takotsubo syndrome; E78.5 Hyperlipidemia, unspecified; I42.9 Cardiomyopathy, unspecified
CPT/HCPCS: 93306